=== PATIENT | male | born 1955 | race Caucasian/White ===

== ENCOUNTER 2016-09-12 10:01 | Inpatient (IN) ==
--- NOTE | 2016-09-12 10:19 | Anesthesia Evaluation PreOp ---
Date of Encounter: 09/12/16 Time of Encounter: 10:55 - Past History Planned Operation: Right fem-pop bypass w graft; right iliac angioplasty Cardiac History: HTN, Arrhythmia (Atrial fibrillation), Other (peripheral vascular disease) Pulmonary History: Smoker, COPD, Other (hx lung CA - no radiation/chemo - being followed) ROUTE SPECIALIST History: Denies Any Significant HX Other Medical History: Denies Any Significant HX Anesthesia History: No Prior Anesthetic Complications Alcohol Use: heavy, recent Drug use: none Medications and Allergies Aspirin [Ecotrin] 325 mg PO DAILY 07/29/16 [History] Atenolol [Tenormin] 50 mg PO BID 07/29/16 [History] Diltiazem HCl [Diltiazem 24Hr Cd] 180 mg PO DAILY 07/29/16 [History] HYDROcodone/Acet 5/325 mg [[place] 5-325 mg] 1 tab PO Q6H PRN #15 tab 07/29/16 [Rx ] Lisinopril [Zestril] 20 mg PO BID 07/29/16 [History] Omeprazole [PriLOSEC] 20 mg PO DAILY 07/29/16 [History] Spironolactone [Aldactone] 25 mg PO DAILY 07/29/16 [History] Albuterol Sulfate [Albuterol Inhaler] 2 puff IH Q4HR PRN 08/18/16 [History] Tiotropium [place] [Spiriva Respimat] 4 gm IH DAILY #0 08/18/16 [History] hydrOXYzine HCl [Hydroxyzine HCl] 25 mg PO Q6H PRN 08/18/16 [History] Allergies No Known Allergies Allergy (Verified 09/12/16 10:43) - Meds/Allergy Pre-op Review Medications Reviewed: Yes Allergies Reviewed: Yes Beta Blockers on Current Med List: Yes (atenolol) If Beta Blockers taken, Date/Time (Last Dose taken): 09-12-16 atenolol 8 am Anesthesia Results - Labs 09/12/16 10:27 09/12/16 10:27 Laboratory Tests 07/28/16 07/28/16 08/16/16 12:52 12:52 10:29 WBC 8.2 Hgb 11.8 L Hct 33.4 L Plt Count 317 PT 10.3 INR 1.0 APTT 28.4 Sodium 124 L Potassium 4.7 H Chloride 92 L Carbon Dioxide 22 BUN 9 Creatinine 0.96 Est GFR ( Amer) > 60 Est GFR (Non-Af Amer) > 60 BUN/Creatinine Ratio 9 Glucose 110 H Calculated Osmolality 257 L Calcium 9.4 - Imaging EKG: report reviewed, image reviewed (SR) Additional studies: TTE: Impression: Technically challenging study due to patient motion and bowel wall attenuation. There is a small sized apical defect representing artifact. Increased bowel uptake obscures interpretation of the inferior wall. Gated EF 62%. Normal wall motion. No identifiable ischemia or infarct on this study. Anesthesia Exam Last Vital Signs Temp 97.7 F 09/12/16 10:17 Pulse 74 09/12/16 10:17 Resp 18 09/12/16 10:17 BP 125/68 09/12/16 10:17 Pulse Ox 98 09/12/16 10:17 Weight: 77 kg NPO (# of Hours): >> 8 hrs - HEENT Pupil (Motor): Pupils equal, EOMI Mallampati: III Teeth: Missing, Poor dentition (only a few teeth remaining) Oral Opening: Greater than 3 - ROUTE SPECIALIST LOC: Oriented ROUTE SPECIALIST Motor: Normal RUE, Normal LUE, Normal RLE, Normal LLE, Normal Face - Cardiac Rhythm: Regular Murmur: None - Pulmonary Breath Sounds: bilateral Clear Respiratory Effort: Symmetrical Anesthesia Assess/Plan ASA Score: 3 Modified Wesley Scale for Level of Consciousness: Cooperative, oriented, and tranquil Anesthetic Plan: General Monitoring Plan: Standard Monitors, A-Line Recovery Plan: PACU
[2016-09-12] MEDS ORDERED: Lidocaine -MPF 1% 2 ML VIAL ID ONE (10:20)
[2016-09-12] MEDS ORDERED: CeFAZolin Pre 2,000 MG/100 ML 2,000 MG/100 ML BAG IVPB ONE (10:20)
[2016-09-12] MEDS ORDERED: Albuterol 2.5 MG/3 ML NEBULIZER IH ONE (10:21)
[2016-09-12] MEDS ORDERED: Albuterol 2.5 MG/3 ML NEBULIZER ONE (10:24)
[2016-09-12] MEDS ORDERED: Ringers Solution, Lactated 1,000 ML IVC SCH (10:30)
[2016-09-12 10:34] LABS: Basophils # 0.1 K/mcL (0.0-0.2); Basophils % 0.8 %; Eosinophils # 0.2 K/mcL (0.0-0.6); Eosinophils % 1.6 %; Hematocrit 35.2 % (37.5-50.1); Hemoglobin 12.1 g/dL (12.9-16.9); Immature Granulocytes % 0.7 % (0-4); Lymphocytes # 1.4 K/mcL (0.6-4.6); Lymphocytes % 14.5 %; Mean Corpuscular HGB Conc 34.4 g/dL (31.6-35.5); Mean Corpuscular Hemoglobin 29.1 pg (28.0-33.3); Mean Corpuscular Volume 84.6 fL (83.0-100.0); Mean Platelet Volume 8.7 fL (9.4-12.4); Monocytes # 0.9 K/mcL (0.0-1.3); Monocytes % 9.6 %; Neutrophils # 7.1 K/mcL (1.6-8.9); Platelet Count 276 K/mcL (140-400); Red Blood Count 4.16 M/mcL (4.19-5.50); Red Cell Distribution Width 14.6 % (11.5-14.5); Segmented Neutrophils % 72.8 %
[2016-09-12] MEDS ORDERED: Heparin 1,000 UNITS/500 mL NS 1,000 ML ONE (10:35)
[2016-09-12 10:49] LABS: BUN/Creatinine Ratio 11 (6-26); Blood Urea Nitrogen 9 mg/dL (8-26); Calcium 9.5 mg/dL (8.6-10.8); Carbon Dioxide 23 mEq/L (19-29); Chloride 92 mEq/L (98-109); Glucose 100 mg/dL (70-99); Osmolality,Calculated 255 (280-300); Sodium 123 mEq/L (136-145); eGFR For African Americans > 60 (> 60); eGFR For Non-African Americans > 60 (> 60)
--- NOTE | 2016-09-12 11:09 | History & Physical Report ---
Date of Encounter: 09/12/16 Time of Encounter: 11:08 24 Hour HP Update - Instructions Instructions: If the History and Physical is less than 30 days old and was completed prior to A.M. admission and or procedure and has NOT been updated on calendar day of procedure please complete this update prior to performing procedure. - Update Patient reports changes in Medical Condition: No Changes in examination, assessment, or condition: No Changes in Medication: No Preop tests/diagnostics Reviewed: Yes Surgery Remains Indicated: Yes Consent for Planned Operative Procedure(s) Verified: Yes - Pre-Operative Checklist Preoperative Checklist Indicated: Yes Prophylactic Antibiotic Ordered: Yes Home Medications Include Beta Olivia: Yes Beta Olivia Taken Today (Day of Surgery): Yes Beta Olivia Taken Yesterday (Day Prior to Surgery): Yes Is VTE Prophylaxis Indicated?: Yes
[2016-09-12] MEDS ORDERED: Lidocaine -MPF 2% 2 ML VIAL ONE ×2 (11:27→12:36)
[2016-09-12] MEDS ORDERED: *HR* Rocuronium Bromide 50 MG/5 ML VIAL ONE (11:27)
[2016-09-12] MEDS ORDERED: Dexamethasone 4 MG/ML VIAL ONE (11:27)
[2016-09-12] MEDS ORDERED: *HR* Midazolam HCl 2 MG/2 ML VIAL ONE (11:27)
[2016-09-12] MEDS ORDERED: *HR* Heparin 5,000 UNIT/ML VIAL ONE ×2 (11:27→15:15)
[2016-09-12] MEDS ORDERED: *HR* Remifentanil 2 MG VIAL IVP ONE (11:27)
[2016-09-12] MEDS ORDERED: *HR* Phenylephrine 10 MG/ML VIAL ONE (11:27)
[2016-09-12] MEDS ORDERED: *HR* Propofol 200 MG/20 ML VIAL IVP ONE (11:27)
[2016-09-12] MEDS ORDERED: Ondansetron 4 MG/2 ML VIAL ONE (11:27)
[2016-09-12] MEDS ORDERED: EPHEDrine 50 MG/ML VIAL ONE (11:27)
[2016-09-12] MEDS ORDERED: *HR* FentaNYL (PF) 100 MCG/2 ML VIAL ONE (11:27)
[2016-09-12] MEDS ORDERED: Dexamethasone 4 MG/ML VIAL IVP ONE (12:40)
[2016-09-12] MEDS ORDERED: *HR* Morphine 2 MG/ML SYRINGE IVP PRN ×3 (12:40→18:20)
[2016-09-12] MEDS ORDERED: Ondansetron 4 MG/2 ML VIAL IVP ONE (12:40)
[2016-09-12] MEDS ORDERED: *HR* Labetalol 20 MG/4 ML SYRINGE IVP PRN (12:40)
--- NOTE | 2016-09-12 12:40 | Anesthesia Procedures ---
Date of Encounter: 09/12/16 Time of Encounter: 11:20 Procedures: Anesthesia - Arterial Line Consent obtained: verbal consent Time out performed: Yes Sedation: Versed (mg): 2 Supplemental Oxygen via Nasal Cannula (L/min): 2 Local Anesthetic: Lidocaine 1% Amount of Anesthetic used (mls): 0.5 Size (Gauge): 20 Length (inches): 1 3/4 Technique Used: guide wire technique, direct puncture technique Post-Procedure: line taped into place, dry sterile dressing placed Patient tolerated procedure: well, no complications Complications: none Site: Radial R Vitals: Vital Signs/O2 Sat/Glucose, Most Recent Temp Pulse Resp BP Pulse Ox 97.7 F 67 18 135/85 98 09/12/16 10:17 09/12/16 11:14 09/12/16 10:41 09/12/16 11:14 09/12/16 11:14 Comments: [facility]
[2016-09-12] MEDS ORDERED: *HR* Magnesium Sulfate 1 GM/2 ML VIAL ONE (13:02)
[2016-09-12] MEDS ORDERED: *HR* Morphine 10 MG/ML VIAL ONE (15:38)
[2016-09-12 15:52] LABS: Hematocrit 24.7 % (37.5-50.1); Hemoglobin 8.5 g/dL (12.9-16.9)
[2016-09-12] MEDS ORDERED: *HR* HYDROmorphone 2 MG/ML SYRINGE ONE (15:52)
--- NOTE | 2016-09-12 17:14 | Operative Note ---
Date of procedure: 09/12/16 Pre-op diagnosis: right leg claudication/PAD Post-op diagnosis: same Procedure: right POWDER GUARD endarterectomy with bovine pericardial patch angioplasty right iliac angiogram with physiologic evaluation right femoral to [place] popliteal bypass with 6 mm PTFE Distaflo Complications: none Anesthesia: ELEANORA Surgeon: Josue Morse Estimated blood loss (cc): 700 Specimen: none Condition: stable Disposition: PACU Procedure in Detail: History Mr. Mars is a 61-year-old white male with a long history of tobacco abuse. He has been having symptoms in his lower extremities for at least 3 years. This led to noninvasive testing which showed an ankle-brachial index of approximately 0.35 bilaterally. He had no palpable pulses in the right groin and a minimal pulse in the left groin. He underwent an angiogram which demonstrated right common femoral artery occlusion for a long length and a focal occlusion of the left common femoral artery. He also has significant superficial femoral artery disease and a concern of right iliac artery disease. The patient now comes to the operating room for his first of 2 surgeries in order to revascularize the lower extremities. The right lower extremity will be revascularized first as the operation appears to be more technically difficult. Procedure After informed consent was obtained the patient was taken to the operating room. General endotracheal anesthesia was established under arterial line pressure monitoring. The abdomen groin and right lower extremity were sterilely prepped and draped. A timeout protocol was observed. The operation was initiated at the groin level. A vertical incision was made to expose the common femoral artery and its bifurcation as well as inguinal ligament and the distal external iliac artery. This vessel was a normal size vessel that was rock hard and without pulse. Controls obtained of the vessels proximally and distally. Next the greater saphenous vein was dissected in the thigh in anticipation of using this for the femoral-popliteal bypass graft portion of this procedure. The vein initially was satisfactory in size but as the dissection carried distally the vein was inadequate and so therefore the vein was abandoned. The above-knee popliteal artery was dissected controls obtained of this vessel. A subsartorial tunnel was created. The patient was then given heparin in a dose of 5000 units. An arteriotomy was made over the anterior aspect of the right common femoral artery. A very thick atherosclerotic occlusion was present with signs of calcification and degenerative material. The dissection had allowed selective control of the femoral and the external iliac artery. The arteriotomy was carried proximally and distally so that the orifice of the profunda femoris artery and superficial femoral artery could be endarterectomized. In addition there was adequate length to proceed proximally to the external iliac artery where there was a palpable pulse. A very thick material was and thus endarterectomized. The orifice of the profunda was cleaned. Excellent pulsatile flow was established from the external iliac artery. The bed of the vessel was then inspected for any residual debris. After this was accomplished and any debris removed a bovine pericardial patch was fashioned over the vessel. This was sewn into position using 6-0 Prolene suture. 2 sutures were used for this anastomosis. After this was accomplished the clamps removed and pulsatile flow was then restored into the profunda femoris system. The second portion of the operation was then conducted. 18-gauge needle was used to puncture the bovine pericardial patch area and then a short 6 [place] sheath was inserted retrograde. An angiogram was obtained of the right common iliac and external iliac system. After this a wire was advanced into the aorta. A catheter was advanced into the aorta and then a series of physiologic measurements were then made beginning at the distal aorta and carried into the right proximal mid and distal common iliac artery and into the proximal and mid external iliac artery. These findings demonstrated no significant change of the waveforms or pressure measurements either in the systolic or diastolic measurement. Also the mean pressure was essentially unchanged. With these findings it was judged that the area of stenosis seen on the angiogram was not hemodynamically significant and therefore not warrant intervention and so therefore no balloon or stent was placed in the external iliac system. The right groin sheath was left in place in anticipation of the femoral anastomosis. The third portion of the operation was then conducted. As mentioned earlier the greater saphenous vein was evaluated but was rejected for use. Therefore a 6 mm PTFE Distaflo graft was selected. This was then passed through the tunnel and the distal anastomosis created first in an end-to-side fashion. 6-0 Prolene suture was used for this anastomosis. The patient had moderate calcific disease at the [id number] popliteal artery. There was antegrade and retrograde flow. The vessels and clamped and the proximal anastomosis was fashioned. This was centered over the point where the 6 [place] sheath had been placed. The graft was then anastomosed in end to side fashion using 6-0 Prolene suture. After appropriate backbleeding and flushing the graft was opened. Pulsatile flow was then established into the right lower extremity through the graft into the popliteal system. Excellent Doppler signals were identified at the anterior tibial and posterior tibial at the ankle. The incisions were irrigated and hemostasis achieved. The wounds were then closed in layers using absorbable suture. A dry sterile dressing was applied to the skin edges. The patient was excavated in the operating room. He was neurologically intact. He was then transported to the recovery room in stable condition.
--- NOTE | 2016-09-12 17:55 | Anesthesia Evaluation Post Op ---
Date of Encounter: 09/12/16 Time of Encounter: 17:54 - Vital Signs Vital Signs: Vital Signs/O2 Sat, Most Current Temp Pulse Resp BP Pulse Ox 97.5 F L 74 12 102/76 97 09/12/16 17:45 09/12/16 17:45 09/12/16 17:45 09/12/16 17:45 09/12/16 17:45 - Lungs Lungs: Clear Ascult./Percussion - Airway Airway: Non-obstructed - Cardiovascular Regular Rate - Mental Status Mental Status: Alert & Oriented, Answers Appropriately - Pain Pain Scale: 0 Pain Scale used: Numeric (1 - 10) - Nausea Vomiting Nausea Vomiting: Not Present - Hydration Hydration: NPO, Brown catheter - Discharge PostOp Status: Transfer Patient to floor
[2016-09-12] MEDS ORDERED: Ondansetron 4 MG/2 ML VIAL IVP PRN (18:20)
[2016-09-12] MEDS ORDERED: Naloxone 0.4 MG/ML INJ IVP PRN (18:20)
[2016-09-12] MEDS ORDERED: hydrOXYzine pamoate 25 MG CAPSULE PO PRN (18:20)
[2016-09-12] MEDS ORDERED: 0.9 % Sodium Chloride 500 ML ONE (18:45)
[2016-09-12] MEDS ORDERED: 0.9 % Sodium Chloride 500 ML IVC ONE (18:47)
[2016-09-12] MEDS: Lisinopril 20 MG TABLET PO SCH (20:51)
[2016-09-13] MEDS: ceFAZolin 2,000 MG in D5% in Water 100 ML IVPB SCH ×3 (00:17→15:00)
[2016-09-13 05:05] LABS: Alanine Aminotransferase 11 Units/L (0-55); Albumin 2.5 g/dL (3.5-5.0); Alkaline Phosphatase 63 Units/L (38-126); Aspartate Amino Transferase 25 Units/L (5-34); BUN/Creatinine Ratio 16 (6-26); Bilirubin,Direct 0.2 mg/dL (0.0-0.5); Bilirubin,Indirect 0.1 mg/dL (0.0-1.2); Bilirubin,Total 0.3 mg/dL (0.2-1.2); Blood Urea Nitrogen 16 mg/dL (8-26); Calcium 8.3 mg/dL (8.6-10.8); Carbon Dioxide 21 mEq/L (19-29); Chloride 97 mEq/L (98-109); Globulin 2.4 g/dL (2.4-3.5); Glucose 194 mg/dL (70-99); Osmolality,Calculated 266 (280-300); Potassium 4.8 mEq/L (3.5-4.5); Sodium 125 mEq/L (136-145); Total Protein 4.9 g/dL (6.0-8.3); eGFR For African Americans > 60 (> 60); eGFR For Non-African Americans > 60 (> 60)
[2016-09-13 05:15] LABS: Basophils % 0.1 %; Hematocrit 25.3 % (37.5-50.1); Hemoglobin 8.7 g/dL (12.9-16.9); Immature Granulocytes % 0.7 % (0-4); Lymphocytes # 0.7 K/mcL (0.6-4.6); Lymphocytes % 4.4 %; Mean Corpuscular HGB Conc 34.4 g/dL (31.6-35.5); Mean Corpuscular Hemoglobin 29.5 pg (28.0-33.3); Mean Corpuscular Volume 85.8 fL (83.0-100.0); Mean Platelet Volume 9.9 fL (9.4-12.4); Monocytes # 0.8 K/mcL (0.0-1.3); Monocytes % 5.1 %; Platelet Count 233 K/mcL (140-400); Red Blood Count 2.95 M/mcL (4.19-5.50); Red Cell Distribution Width 14.6 % (11.5-14.5); Segmented Neutrophils % 89.7 %
[2016-09-13 05:25] LABS: Neutrophils # 13.4 K/mcL (1.6-8.9)
[2016-09-13] MEDS: Acetaminophen 325 MG TABLET PO PRN ×2 (07:55→15:00)
[2016-09-13] MEDS: Lisinopril 20 MG TABLET PO SCH (07:57)
[2016-09-13] MEDS ORDERED: (Tiotropium Bromide [Spiriva Respimat] 4 GM) IH SCH (09:00)
[2016-09-13] MEDS ORDERED: Diltiazem CD (24hr) 180 MG CAPSULE PO SCH (09:00)
[2016-09-13] MEDS ORDERED: Aspirin Enteric Coated 325 MG Tablet PO SCH (09:00)
[2016-09-13] MEDS ORDERED: Spironolactone 25 MG TABLET PO SCH (09:00)
[2016-09-13] MEDS: *HR* HYDROcodone/Acet 5/325 mg TABLET PO PRN ×2 (10:38→17:14)
--- NOTE | 2016-09-13 12:52 | Discharge Summary ---
Date of Encounter: 09/13/16 Time of Encounter: 12:50 - Discharge Diagnosis (1) PAD (peripheral artery disease) Priority: Primary Status: Acute Comments: Severe bilateral lower extremity peripheral vascular occlusive disease with ankle-brachial index of approximately 0.35. Patient had an angiogram which demonstrated marked and diffuse disease. He is status post now postoperative day #1 from right lower extremity revascularization. Patient will require endarterectomy and bypass grafting of the left lower extremity in the near future. (2) COPD (chronic obstructive pulmonary disease) Priority: Secondary Status: Chronic Comments: Patient under medical treatment Qualifiers: COPD type: unspecified COPD Qualified Code(s): J44.9 - Chronic obstructive pulmonary disease, unspecified (3) Tobacco abuse Priority: Secondary Status: Chronic Comments: Patient is a one half pack a day smoker. He had been 3 packs a day. Patient has been counseled as to the need for complete tobacco cessation. (4) ETOH abuse Priority: Secondary Status: Chronic Comments: Patient admits to consuming 4-5 cans of beer per night. (5) Hyponatremia Priority: Secondary Status: Chronic Comments: Patient has asymptomatic hyponatremia in the mid 120 range. Due to the chronicity of this and the fact that he will require further surgery and anesthesia near future I requested a renal consultation prior to his discharge today. - Discharge Medications Prescriptions: HYDROcodone/Acet 5/325 mg [[place] 5-325 mg] 1 tab PO Q6H PRN #30 tab PRN Reason: Pain Lovastatin [Mevacor] 20 mg PO HS #30 tablet Home Medications: Aspirin [Ecotrin] 325 mg PO DAILY 07/29/16 [History] Atenolol [Tenormin] 50 mg PO BID 07/29/16 [History] Diltiazem HCl [Diltiazem 24Hr Cd] 180 mg PO DAILY 07/29/16 [History] Lisinopril [Zestril] 20 mg PO BID 07/29/16 [History] Omeprazole [PriLOSEC] 20 mg PO DAILY 07/29/16 [History] Spironolactone [Aldactone] 25 mg PO DAILY 07/29/16 [History] Albuterol Sulfate [Albuterol Inhaler] 2 puff IH Q4HR PRN 08/18/16 [History] Tiotropium [place] [Spiriva Respimat] 4 gm IH DAILY #0 08/18/16 [History] hydrOXYzine HCl [Hydroxyzine HCl] 25 mg PO Q6H PRN 08/18/16 [History] HYDROcodone/Acet 5/325 mg [[place] 5-325 mg] 1 tab PO Q6H PRN #30 tab 09/13/16 [Rx ] Lovastatin [Mevacor] 20 mg PO HS #30 tablet 09/13/16 [Rx] Allergies/Adverse Reactions: Allergies No Known Allergies Allergy (Verified 09/12/16 10:43) Date of admission: 09/12/16 18:19 Primary care physician: Shankar Menezes CNP Consults: 09/13/16 08:43 Consult to Nephrology [CONS] Routine Consulting Provider: Kidney Denise/LYLE/GIGI/ISHAAN Reason for Consult: hyponatremia/EtOH use/PAD/s/p post right fem-pop bypass graft Call Completed: Yes Procedure(s) Performed: Right common femoral artery endarterectomy with bovine pericardial patch angioplasty, right iliac artery angiogram with physiologic monitoring, and right femoral to above-knee popliteal artery bypass graft with 6 mm PTFE Distaflo Discharging clinician: Josue Morse Anticipated date of discharge: 09/13/16 - Patient Status Disposition: Home, Self-Care Condition: Fair Functional capacity at discharge: uses cane/walker Overall status at discharge: patient is progressing back to baseline - Discharge Instructions Follow Up With: Suleman Kirkpatrick MD [Partnered Physician] - 10/19/16 2:00 pm Shankar Menezes CNP [Primary Care Provider] - 09/18/16 11:00 am () Josue Morse MD [Partnered Physician] - 09/25/16 9:15 am (THIS APPOINTMENT IS IN [place]) Additional Instructions: Keep right thigh surgical site dry for total of 5 days following surgery No lifting greater than 10 pounds No automobile driving Patient may ambulate inside and outside. Patient may use steps as tolerated. Patient is to use incentive spirometer 10 times an hour while awake Patient is recommended to refrain from all tobacco use. - Diet and Activity Activity: increase activity as tolerated Diet: advance to your usual diet - Hospital Course Hospital course: Mr. Mars is a 61 year old male With severe C OPD and PAD. Patient was taken to the operating room yesterday had a complex revascularization for the right lower extremity including endarterectomy bypass grafting and angiography. On postoperative evaluation the right foot was warm and pink with excellent Doppler signals. He had a dramatic improvement in the perfusion area patient's serum sodium had slightly increased to 125. Patient will be seen by nephrology later today and I anticipate he will be discharged later today as well. The patient will be given a prescription for [place] 5 mg #30 Patient will be given a prescription for lovastatin 20 mg daily at bedtime #30 with 1 refill due to his severe PAD Time spent discussing smoking cessation with patient: 3 to 10 minutes - Time Spent with Patient Total time spent providing and/or coordinating discharge services: Exam Vital Signs, Last 4 Hours Temp Pulse Resp BP Pulse Ox 09/13/16 12:00 97.7 F 69 17 115/54 99 09/13/16 11:43 97.7 F 69 17 115/54 99 General: Present: Conversant, No Apparent Distress, Well developed HEENT: Present: Atraumatic, Trachea midline Neck: Absent: JVD Cardiac: Present: Reg Rate and Rhythm, Normal S1 and S2 Lungs: Present: Decreased breath sounds Neuro: Present: Alert and responsive, No focal deficits noted Abdomen: Present: Soft, Non-tender. Absent: [place] Vascular: Present: Normal capillary refill, Other (Patient has excellent biphasic to triphasic signals at the right ankle. The right foot is warm and pink. It is markedly improved in its perfusion as compared to preoperative status.). Absent: Clubbing - VTE Documentation of Mechanical Device: Intermittent pneumatic compression device
--- NOTE | 2016-09-13 14:01 | Nephrology Consult Note ---
Date of Encounter: 09/13/16 Time of Encounter: 13:58 Assessment and Plan (1) Hyponatremia Current Visit: Yes Status: Chronic The patient has hyponatremia of unclear etiology appears to be present since at least July 2016. The patient seems asymptomatic and the low-sodium seems stable. I think he is okay for outpatient management. I have asked him to restrict his fluids to no more than 2 L daily and to liberalize his salt intake. I have also asked him to decrease his beer intake to no more to 2 beers a day. I have ordered urine serum osmolality, but are not sure if this will be done prior to his discharge. I will request repeat labs for next week to ensure that his sodium is not changing. If he does not respond to dietary modifications then may need to change some of his medications. His primary care physician needs to make sure that the patient's cancer screenings are up-to-date. He especially needs to be evaluated for lung cancer with his history of COPD. (2) CAD (coronary artery disease) Current Visit: Yes Status: Acute Per primary care team. He is not having chest pain. Qualifiers: Qualified Code(s): I25.10 - Atherosclerotic heart disease of [place] coronary artery without angina pectoris (3) PAD (peripheral artery disease) Current Visit: Yes Status: Acute Defer to the vascular team. (4) COPD (chronic obstructive pulmonary disease) Current Visit: Yes Status: Chronic He is not dyspneic at the time my evaluation. Qualifiers: COPD type: unspecified COPD Qualified Code(s): J44.9 - Chronic obstructive pulmonary disease, unspecified (5) Tobacco abuse Current Visit: Yes Status: Chronic Defer to primary care provider. (6) ETOH abuse Current Visit: Yes Status: Chronic I have asked the patient to cut his beer is down from 5 beers a day to 2 beers a day. He may need additional counseling. We will defer to his primary care team. When he comes back to the hospital we will need to monitor for delirium tremens. History of Present Illness - Reason for Consult Consult date: 09/13/16 hyponatremia - Chief Complaint Hyponatremia - History of Present Illness Mr. Mars is a 61 yo man with a history of coronary artery disease who presented for a procedure by vascular surgery. He was found to have hyponatremia that was new to the patient. The patient denies any symptoms. He reports that he rarely drinks water at home. He typically drinks 4-5 beers a night. He states his appetite is good. He does not have any other complaints. Past Med Surg Social Fam HX - Past Medical History Medical history: atrial fibrillation, cancer, COPD, hypertension, other Psychiatric history: no psych history - Past Surgical History Surgical History: no surgical history - Social History Smoking Status: Current every day smoker Smokeless Tobacco Status: No Alcohol use: heavy, recent Drug use: none Medications and Allergies Aspirin [Ecotrin] 325 mg PO DAILY 07/29/16 [History] Atenolol [Tenormin] 50 mg PO BID 07/29/16 [History] Diltiazem HCl [Diltiazem 24Hr Cd] 180 mg PO DAILY 07/29/16 [History] HYDROcodone/Acet 5/325 mg [[place] 5-325 mg] 1 tab PO Q6H PRN #15 tab 07/29/16 [Rx ] Lisinopril [Zestril] 20 mg PO BID 07/29/16 [History] Omeprazole [PriLOSEC] 20 mg PO DAILY 07/29/16 [History] Spironolactone [Aldactone] 25 mg PO DAILY 07/29/16 [History] Albuterol Sulfate [Albuterol Inhaler] 2 puff IH Q4HR PRN 08/18/16 [History] Tiotropium [place] [Spiriva Respimat] 4 gm IH DAILY #0 08/18/16 [History] hydrOXYzine HCl [Hydroxyzine HCl] 25 mg PO Q6H PRN 08/18/16 [History] Allergies No Known Allergies Allergy (Verified 09/12/16 10:43) Review of Systems All Systems: reviewed and no additional remarkable complaints except as stated ( As documented in history of present illness.) Exam - Vital Signs Vital signs: Initial Vital Signs Temp Pulse Resp BP Pulse Ox 97.7 F 74 18 125/68 98 09/12/16 10:17 09/12/16 10:17 09/12/16 10:17 09/12/16 10:09/12/16 10:17 Vital Signs - Last 8 Hours Temp Pulse Resp BP Pulse Ox 09/13/16 13:00 97.7 F 74 18 115/54 98 09/13/16 12:00 97.7 F 69 17 115/54 99 09/13/16 11:43 97.7 F 69 17 115/54 99 09/13/16 09:00 97.7 F 71 18 114/47 99 09/13/16 07:30 97.4 F L 71 18 114/47 98 Intake and Output 09/12/16 09/13/16 09/13/16 23:59 07:59 15:59 Intake Total 350 / 350 570 / 570 580 / 580 Output Total 900 / 900 380 / 380 260 / 260 Balance -550 / -550 190 / 190 320 / 320 Intake: IV Fluids 100 / 100 100 / 100 Ancef 2,000 MG In 100 / 100 100 / 100 Dextrose 5% 100 ML @ 200 mls/hr IVPB Q8HR [place] Rx#: [id number] Oral 470 / 470 480 / 480 Blood Product 350 / 350 Rbcs Leuko Poor As-1 350 / 350 Unit [id number] Output: Urine 0 / 0 260 / 260 Estimated Blood Loss 700 / 700 Catheter 200 / 200 380 / 380 Other: Meal Lunch Percent of Meal Consumed 80% Weight 77.11 kg Patient Weight 09/13/16 23:59 Weight 77.11 kg - General Appearance General appearance: well-developed, well-nourished, chronically ill EENT: ATNC Neck: supple Additional Comments: His respirations are not labored. Cardiology: edema (In the right lower extremity. His left lower extremity is in a brace.), regular rate Additional Comments: His abdomen is nondistended. Integumentary: warm and dry Neurologic: alert and oriented x3 Musculoskeletal: no cyanosis Psychiatric: mood/affect appropriate Results - Lab Results 09/13/16 04:00 09/13/16 04:00 Most recent lab results Calcium 8.3 mg/dL (8.6-10.8) L 09/13/16 04:00 Consult Discharge Plan - Plan Referrals: Shankar Menezes CNP [Primary Care Provider] - 09/18/16 11:00 am () Jouse Morse MD [Partnered Physician] - 09/25/16 9:15 am (THIS APPOINTMENT IS IN [place])
[2016-09-13 15:47] VITALS: BP 126/62
== END 2016-09-13 17:55 | disposition home or self-care (01) | DRG 253 ==
LOC: SAMDAY 10:01 → 2NNU 18:19
PROVIDERS: ADMIT Surgery Vascular Surgery; ATTEND Surgery Vascular Surgery

== ENCOUNTER 2016-09-17 21:31 | Inpatient (IN) ==
[2016-09-18] MEDS ORDERED: Naloxone 0.4 MG/ML INJ IVP PRN (00:03)
[2016-09-18] MEDS ORDERED: Ondansetron ODT 4 MG TAB.RAPDIS SL PRN (00:03)
[2016-09-18] MEDS ORDERED: Albuterol 2.5 MG/3 ML NEBULIZER IH PRN (00:03)
[2016-09-18] MEDS ORDERED: Ipratropium/Albuterol Neb 3 ML IH PRN ×2 (00:03→03:16)
--- NOTE | 2016-09-18 00:12 | Internal Med History&Physical ---
<Hermilo Bauman - Last Filed: 09/18/16 03:07> Date of Encounter: 09/18/16 Time of Encounter: 00:10 Assessment and Plan (1) Severe sepsis Current visit: Yes Status: Acute Due to pneumonia. COPD history, not oxygen dependent. 2-3 day hx of cough, phlegm production, increased work of breathing, subjective fevers. CTA negative for PE but showed right perihilar and basilar infiltrate concerning for pneumonia, mild emphysema. Meets spesis criteria due to WBC, tachypnea, pneumonia. WBC 24.9. Lactic acid 2.6. Mild hypotension at outside facility. BP currently 120s/70s. Patient was given 2L NS, vancomycin 1gram, zosyn 3.375, and tylenol 1g at [facility]. Continue vancomycin and zosyn Additional 500cc bolus to meet 30ml/kg goal for sepsis Continue to trend lactic acid Albuterol q4 PRN Duoneb q4-6h PRN Symbicort inhaler BID Prednisone 60mg q8h (2) Pneumonia Current visit: No Status: Acute See above Qualifiers: Pneumonia type: due to unspecified organism Laterality: right Lung location: lower lobe of lung Qualified Code(s): J18.1 - Lobar pneumonia, unspecified organism (3) COPD (chronic obstructive pulmonary disease) Current visit: No Status: Chronic Uses albuterol inhaler and symbicort inhaler at home. No home O2 use. No chronic prednisone use. Continue home meds. Albuterol q4 PRN Duoneb q4-6h PRN Symbicort inhaler BID Qualifiers: COPD type: unspecified COPD Qualified Code(s): J44.9 - Chronic obstructive pulmonary disease, unspecified (4) Pulmonary nodule Current visit: Yes Status: Acute 9 mm right upper lobe pulmonary nodule seen on CTA. Patient states he is aware of this nodule and has refused further workup for it in past including refusal of biopsy. Recommend f/u CT, CT/PET, or tissue sampling in 3 months. (5) Tobacco abuse Current visit: No Status: Chronic Chronic smoking history. [employer] on smoking cessation. Nicotine patch PRN (6) PAD (peripheral artery disease) Current visit: No Status: Acute Right thigh incision from fempop bypass with localized erythema and small amount of yellow drainage from site; Pulses present bilaterally - PT +1/4 left , +1/4 right. Confirmed doppler flow of bialteral DP and PT pulse. Coolness and tenderness of left foot (previous fracture) along with decreased sensation to light touch. (7) Cellulitis Current visit: Yes Status: Acute Right thigh incision from fempop bypass with localized erythema and small amount of yellow drainage from site; On vanc and zosyn empirically. Consult vascular surgery Qualifiers: Site of cellulitis: extremity Site of cellulitis of extremity: lower extremity Laterality: right Qualified Code(s): L03.115 - Cellulitis of right lower limb (8) A-fib Current visit: Yes Status: Chronic Takes diltiazem at home 180mg daily for rate control. HR currently in 80s, NSR. Will hold until BP stabilizes. Takes aspirin 325mg daily. No additional blood thinners. Qualifiers: Atrial fibrillation type: paroxysmal Qualified Code(s): I48.0 - Paroxysmal atrial fibrillation (9) CAD (coronary artery disease) Current visit: No Status: Acute Atherosclerotic calcification in the aorta and coronary circulation seen on CTA. Takes aspirin 325mg daily. Hold for now. Qualifiers: Coronary Disease-Associated Artery/Lesion type: unspecified vessel or lesion type [place] vs. transplanted heart: unspecified whether [place] or transplanted heart Associated angina: angina presence unspecified Qualified Code(s): I25.10 - Atherosclerotic heart disease of [place] coronary artery without angina pectoris (10) Hyponatremia Current visit: No Status: Chronic History of chronic hyponatremia. Continue to monitor. Has received NS due sepsis. Will consult nephro. See above. (11) Anemia Current visit: No Status: Acute Chronic for patient. Received 1 PRBC transfusion s/p right fempop due to anemia Qualifiers: Anemia type: unspecified type Qualified Code(s): D64.9 - Anemia, unspecified (12) GERD (gastroesophageal reflux disease) Current visit: Yes Status: Acute Takes omeprazole 20mg daily at home. Continue home meds Qualifiers: Esophagitis presence: without esophagitis Qualified Code(s): K21.9 - Gastro -esophageal reflux disease without esophagitis (13) Hypertension Current visit: Yes Status: Acute Takes lisinopril 20mg BID and atenolol 50mg BID. Will hold for now until BP stable. Qualifiers: Hypertension type: essential hypertension Qualified Code(s): I10 - Essential (primary) hypertension Internal Medicine - H&P: HPI Admitted From: Intrahospital Transfer (from [facility]) Plans for Post Hospital Care: Home History of present illness: Patient is a 61 yo M with PMHx of COPD, a fib, HTN, CAD, PAD, GERD. Patient underwent recent fempop bypass by Dr. Morse. He presented to [facility] today due to productive cough, increased work of breathing above baseline, subjective fevers for the past 2-3 days. Admits to chronic smoking history. Denies ever being on BIPAP or intubated in the past due to COPD. Does not use oxygen at home; uses albuterol PRN and Spiriva inhaler at home. He does have a known pulmonary nodule which he states he has refused to have biopsied in the past. He also admits to mild drainage of yellow fluid/pus from fempop incision site. He reports chronic coolness and decreased sensation to light touch of left foot due to peripheral artery disease. He denies any chest pain, nausea, vomiting, diarrhea, constipation, abdominal pain. Workup at outside facility showed elevated WBC, lactic [place], CT showing right sided pneumonia in perhilar and basilar region. He was given 2L NS, vancomycin, zosyn, and Tylenol 1g. No steroids or breathing treatments given at outside facilty. Past Med Surg Social Fam HX - Past Medical History Medical history: atrial fibrillation, cancer, COPD, hypertension, other Psychiatric history: no psych history - Past Surgical History Surgical History: no surgical history - Social History Smoking Status: Current every day smoker Smokeless Tobacco Status: No (1ppd) Alcohol use: heavy, recent Drug use: none - Family History Mother Living Status: Hx Family Medical Disorders: Yes (lung ca) Internal Medicine - H&P: Meds Aspirin [Ecotrin] 325 mg PO DAILY 07/29/16 [History] Atenolol [Tenormin] 50 mg PO BID 07/29/16 [History] Diltiazem HCl [Diltiazem 24Hr Cd] 180 mg PO DAILY 07/29/16 [History] Lisinopril [Zestril] 20 mg PO BID 07/29/16 [History] Omeprazole [PriLOSEC] 20 mg PO DAILY 07/29/16 [History] Spironolactone [Aldactone] 25 mg PO DAILY 07/29/16 [History] Albuterol Sulfate [Albuterol Inhaler] 2 puff IH Q4HR PRN 08/18/16 [History] Tiotropium [place] [Spiriva Respimat] 4 gm IH DAILY #0 08/18/16 [History] hydrOXYzine HCl [Hydroxyzine HCl] 25 mg PO Q6H PRN 08/18/16 [History] HYDROcodone/Acet 5/325 mg [[place] 5-325 mg] 1 tab PO Q6H PRN #30 tab 09/13/16 [Rx ] Lovastatin [Mevacor] 20 mg PO HS #30 tablet 09/13/16 [Rx] Allergies No Known Allergies Allergy (Verified 09/12/16 10:43) All Systems PM: A 10-system review of systems was performed and is negative for pertinent findings except as documented above in the HPI. - Constitutional Constitutional: fatigue, fever(s), no chills - EENT Eyes: no change in vision Nose, mouth and throat: no nasal congestion, no sinus pain, no sore throat - Cardiovascular Cardiovascular ROS IM: dyspnea, no chest pain, no lightheadedness - Respiratory Respiratory: cough, dyspnea, excessive phlegm production - Gastrointestinal Gastrointestinal: no abdominal pain, no cramping, no diarrhea, no nausea, no vomiting - Genitourinary Genitourinary ROS male: no dysuria, no hematuria - Musculoskeletal Musculoskeletal ROS IM: no muscle weakness, no numbness, no tingling - Integumentary Integumentary IM: other (pus drainage and redness right thigh incision) - Neurological Neurological ROS: no dizziness, no numbness, no tingling, no weakness - Psychiatric Psychiatric: no confusion - Constitutional General appearance: Present: mild distress, A&O X 3, answers questions appropriately Exam: Increased work of breathing on exam with accessory muscle use, actively coughing up phlegm - Head Head exam: Present: atraumatic, normal inspection - Eye Eye exam: Present: PERRL, conjuntiva pink, sclera anicteric Pupils: Present: PERRL - ENT ENT exam: Present: mucous membranes moist - Neck Neck exam general surgery: Present: supple, trachea midline. Absent: lymphadenopathy - Respiratory Respiratory exam: Present: accessory muscle use (mild to moderate), decreased breath sounds (bilateral U and L lobes, worse on right), respiratory distress ( mild), wheezes (bilateral LL), tachypnea - Cardiovascular Cardiovascular exam: Present: RRR, +S1, +S2. Absent: diastolic murmur, gallop, rubs, systolic murmur - GI/Abdominal GI/Abdominal exam: Present: normal bowel sounds, soft, no peritoneal signs. Absent: distended, tenderness - Extremities Exam Extremities exam: Present: full ROM, normal capillary refill, warm Additional comments: Right thigh incision from fempop bypass with localized erythema and small amount of yellow drainage from site; Pulses present bilaterally - PT +1/4 left , +1/4 right. Confirmed doppler flow of bialteral DP and PT pulse. Cool and tenderness of left foot (previous fracture) with decreased sensation to light touch - Neurological Exam Neurological exam: Present: alert, CN II-XII intact, oriented X3, no focal deficits. Absent: facial droop, speech deficit - Psychiatric Psychiatric exam: Present: anxious, normal affect, normal mood - Skin Skin exam: Present: diaphoretic Additional comments: mildly jaundice Internal Med - H&P Results - Labs CBC & Chem 7: 09/18/16 00:48 09/18/16 00:48 <Camacho Pedroza - Last Filed: 09/18/16 06:13> Date of Encounter: 09/18/16 Internal Medicine - H&P: HPI History of present illness: Mr. Mars is a 61 year old male All Systems PM: A 10-system review of systems was performed and is negative for pertinent findings except as documented above in the HPI. - Constitutional Vitals: Temp Pulse Resp BP Pulse Ox 98.3 F 92 24 109/67 100 09/18/16 03:37 09/18/16 05:00 09/18/16 05:00 09/18/16 05:00 09/18/16 05:00 Internal Med - H&P Results - Labs CBC & Chem 7: 09/18/16 04:17 09/18/16 04:17 Labs: Short CBC 09/18/16 09/18/16 Range/Units 00:48 04:17 WBC 17.9 H 15.2 H (4.3-11.1) K/mcL Hgb 6.4 L 6.6 L (12.9-16.9) g/dL Hct 19.2 L 19.8 L (37.5-50.1) % Plt Count 242 288 (140-400) K/mcL Neutrophils # 15.0 H 12.5 H (1.6-8.9) K/mcL BMP 09/18/16 09/18/16 00:48 04:17 Sodium 125 L 126 L Potassium 4.0 D 4.1 Chloride 98 99 Carbon Dioxide 20 19 BUN 16 14 Creatinine 0.84 0.77 Glucose 139 H 144 H Calcium 7.8 L D 8.1 L - ABG Interpretation ABG results: 09/18/16 03:50 ABG pH 7.35 ABG pCO2 39 ABG pO2 37 L* ABG HCO3 21.5 ABG Total CO2 22.7 ABG O2 Saturation 67 L ABG Base Excess -3.8 L - Impressions ITS Impressions Chest X-Ray 09/18/16 03:36 IMPRESSION: Interval development of mild interstitial edema, possibly related to fluid overload. Mild right basilar airspace disease is unchanged from the recent study. D/ / Viraj Ramos MD / Viraj Ramos MD Interpreting Provider: Viraj Ramos MD - Attending Attestation I examined this patient and my medical decision-making was reviewed with the Resident Physician, Dr Hermilo Bauman. I agree with the documented findings, disposition and treatment plan as described except to the extent set forth below. My findings are summarized below: Patient appears tremulous and tachypneic, and mild to moderate respiratory distress. Lung auscultation reveals bilateral expiratory wheezes. Heart is tachycardic and regular Laboratory data reveals white blood cell count of 24,000 at [facility], lactic acid at [facility] was 2.6. CT of the chest reviewed by myself shows a right upper lobe nodule and right middle lobe right lower lobe groundglass opacity consistent with pneumonia. Plan: We will admit the patient to ICU overflow and started treatment with IV fluids, IV antibiotics and inhaled bronchodilators. The patient then became tachypneic with respirations 35-40/m, in severe respiratory distress and tripoding,. We placed the patient on BiPAP and obtain a repeat ABG which showed severe arterial hypoxemia, pH was within normal range and CO2 was normal. We continued the BiPAP. His oxygen saturation was 99-100% on 50% FiO2 with 10 over 5 cm H2O. I ordered albuterol inhaled in between DuoNeb treatments and started IV Solu-Medrol for COPD exacerbation. He also appeared to be withdrawing from alcohol. Per additional history obtained from the patient's daughter last drink was yesterday at 3 PM but the patient drinks daily 3-6 beers. I ordered 2 mg of Ativan which improved with tremulousness and tachypnea, breathing ride dropped to 20-24 and oxygen saturation remained at 99% on BiPAP. I repeated a chest x-ray and reviewed this to show again a perihilar and right lower lobe hazy infiltrate but no pulmonary edema, no pleural effusions no pneumothorax. We will continue with inhaled bronchodilators IV steroids BiPAP as needed, alcohol withdrawal protocol and antibiotics with Zosyn and vancomycin. Follow- up blood cultures. Continue with IV fluids. CODE STATUS is full code discuss with the patient and family at the bedside. The high probability of emergent and significant clinical decompensation with potential impairment of organ function including cardiovascular system required my full attention and presence at the bedside. I spent 40 minutes of critical care time which involved decision making of high complexity to assess, manipulate, and support vital organ system, in order to prevent further life threatening deterioration of the patient's condition. The critical care time was spent in the patient's room and/or its close proximity and involved obtaining updated history and examining the patient, reviewing EKGs, imaging studies and laboratory data, ordering medications and laboratory studies, and reevaluating for clinical response. The time took to perform any procedures was not included in the critical care time quoted above and is billed separately.
[2016-09-18] MEDS ORDERED: 0.9 % Sodium Chloride 500 ML IVC ONE (00:23)
[2016-09-18 01:04] LABS: INR 1.2; Prothrombin Time 13.3 Seconds (9.4-12.1)
[2016-09-18 01:07] LABS: Activated Partial Thrombo Time 25.6 Seconds (26.0-36.0)
[2016-09-18 01:14] LABS: BUN/Creatinine Ratio 19 (6-26); Blood Urea Nitrogen 16 mg/dL (8-26); Calcium 7.8 mg/dL (8.6-10.8); Carbon Dioxide 20 mEq/L (19-29); Chloride 98 mEq/L (98-109); Glucose 139 mg/dL (70-99); Magnesium 1.4 mg/dL (1.6-2.6); Osmolality,Calculated 263 (280-300); eGFR For African Americans > 60 (> 60); eGFR For Non-African Americans > 60 (> 60)
[2016-09-18 01:17] LABS: Hematocrit 19.2 % (37.5-50.1); Hemoglobin 6.4 g/dL (12.9-16.9); Mean Corpuscular HGB Conc 33.3 g/dL (31.6-35.5); Mean Corpuscular Hemoglobin 29.5 pg (28.0-33.3); Mean Corpuscular Volume 88.5 fL (83.0-100.0); Mean Platelet Volume 9.3 fL (9.4-12.4); Platelet Count 242 K/mcL (140-400); Red Blood Count 2.17 M/mcL (4.19-5.50); Red Cell Distribution Width 14.6 % (11.5-14.5)
[2016-09-18 03:05] LABS: Sodium 125 mEq/L (136-145)
[2016-09-18 03:12] LABS: Anisocytosis 1+ (Not Present); Eosinophils # 0.2 K/mcL (0.0-0.6); Hypochromasia Present (Not Present); Lymphocytes # 0.7 K/mcL (0.6-4.6); Monocytes # 1.6 K/mcL (0.0-1.3); Platelet Estimate Normal (Normal); Polychromasia 1+ (Not Present); Toxic Granulation Present (Not Present)
[2016-09-18] MEDS ORDERED: Magnesium Sulfate 1 GM in D5% in Water 100 ML IVPB ONE (03:15)
[2016-09-18] MEDS: Piperacillin/Tazobactam 3.375 GM in D5% in Water (Mini-Bag+) 100 ML IVPB SCH ×3 (03:25→20:48)
[2016-09-18] MEDS: Albuterol 2.5 MG/3 ML NEBULIZER IH PRN ×2 (03:28→20:07)
[2016-09-18] MEDS ORDERED: *HR* LORazepam 2 MG/ML VIAL IVP ONE ×2 (03:34→03:38)
[2016-09-18] MEDS ORDERED: methylPREDNISolone 125 MG/2 ML VIAL IVP ONE (03:44)
[2016-09-18] MEDS ORDERED: methylPREDNISolone 125 MG/2 ML VIAL IVP SCH ×3 (03:45→10:00)
[2016-09-18 03:52] LABS: ABG Base Excess -3.8 mEq/L (-2.0 to 3.0); ABG HCO3 21.5 mEQ/L (21-27); ABG Oxygen Saturation 67 % (95-98); ABG PCO2 39 mmHg (35-45); ABG PH 7.35 pH Units (7.32-7.45); ABG TCO2 22.7 mEq/L (20-26)
[2016-09-18 03:53] LABS: Blood Gas FiO2 50 %
[2016-09-18 03:54] LABS: ABG PO2 37 mmHg (85-104)
[2016-09-18] MEDS ORDERED: predniSONE 20 MG TABLET PO SCH ×2 (04:00→06:00)
[2016-09-18] MEDS ORDERED: *HR* LORazepam 2 MG/ML VIAL IVP PRN ×3 (04:25→10:55)
[2016-09-18] MEDS ORDERED: Thiamine (B-1) 100 MG, Folic Acid 1 MG, MVI, adult with vitamin K 10 ML in 0.9 % Sodi... IVPB ONE (04:28)
--- NOTE | 2016-09-18 04:31 | Event Note ---
Addendum entered and electronically signed by Hermilo Bauman DO 09/18/16 05:04: Patient Hgb 6.4. Will transfuse with 2 PRBCs. Original Note: <Hermilo Bauman - Last Filed: 09/18/16 04:32> Date of Encounter: 09/18/16 Time of Encounter: 04:29 Patient had episode of desaturation and increased WOB. Desat to high 70s/low 80s. RR in 30s. Patient also has hx of alcohol abuse and was shivering. Daughter at bedside stated that patient has chronic alcohol abuse, used to drink 5-6 beers a day and has decreased to 3-4 beers daily over the past few days. Last drink was 09/16/16. He was placed on BIPAP and given solumedrol 125mg, 1mg ativan, placed on CIWA protocol. Repeat CXR shows pneumonia with mild edema. After medications, RR has slowed to 20s, sat is 100% on BIPAP, resting comfortably. <Camacho Pedroza - Last Filed: 09/18/16 06:15> Date of Encounter: 09/18/16 I examined this patient and my medical decision-making was reviewed with the Resident Physician, Dr Hermilo Bauman. I agree with the documented findings, disposition and treatment plan as described.
[2016-09-18 04:40] LABS: BUN/Creatinine Ratio 18 (6-26); Blood Urea Nitrogen 14 mg/dL (8-26); Calcium 8.1 mg/dL (8.6-10.8); Carbon Dioxide 19 mEq/L (19-29); Chloride 99 mEq/L (98-109); Glucose 144 mg/dL (70-99); Osmolality,Calculated 265 (280-300); Potassium 4.1 mEq/L (3.5-4.5); Sodium 126 mEq/L (136-145); eGFR For African Americans > 60 (> 60); eGFR For Non-African Americans > 60 (> 60)
[2016-09-18] MEDS: Budesonide/Formoterol 80/4.5 MDI IH SCH ×3 (04:53→21:37)
[2016-09-18 05:11] LABS: Hematocrit 19.8 % (37.5-50.1); Mean Corpuscular HGB Conc 33.3 g/dL (31.6-35.5); Mean Corpuscular Hemoglobin 29.3 pg (28.0-33.3); Mean Platelet Volume 9.3 fL (9.4-12.4); Platelet Count 288 K/mcL (140-400); Red Blood Count 2.25 M/mcL (4.19-5.50); Red Cell Distribution Width 14.7 % (11.5-14.5)
[2016-09-18 05:17] LABS: Hemoglobin 6.6 g/dL (12.9-16.9)
[2016-09-18 05:42] LABS: Platelet Estimate Normal (Normal)
[2016-09-18 05:44] LABS: Lymphocytes # 0.9 K/mcL (0.6-4.6); Monocytes # 1.8 K/mcL (0.0-1.3); Neutrophils # 12.5 K/mcL (1.6-8.9); Toxic Granulation Present (Not Present)
[2016-09-18] MEDS ORDERED: 0.9 % Sodium Chloride 250 ML ONE (06:21)
[2016-09-18 06:37] LABS: ABG Base Excess -2.8 mEq/L (-2.0 to 3.0); ABG HCO3 21.4 mEQ/L (21-27); ABG Oxygen Saturation 93 % (95-98); ABG PCO2 33 mmHg (35-45); ABG PH 7.42 pH Units (7.32-7.45); ABG PO2 66 mmHg (85-104); ABG TCO2 22.4 mEq/L (20-26)
[2016-09-18 06:38] LABS: Blood Gas FiO2 36 %
[2016-09-18] MEDS ORDERED: Furosemide 20 MG/2 ML VIAL IVP ONE (07:53)
--- NOTE | 2016-09-18 08:48 | Pulmonology Consult Note ---
<Juan Pablo Torres - Last Filed: 09/18/16 14:30> Date of Encounter: 09/18/16 Time of Encounter: 08:41 Assessment and Plan (1) Pneumonia Current Visit: No Status: Acute On CT from outside facility at [facility] was concerning for right lower lobe pneumonia. Patient is currently on vancomycin and Zosyn. Qualifiers: Pneumonia type: due to unspecified organism Laterality: right Lung location: lower lobe of lung Qualified Code(s): J18.1 - Lobar pneumonia, unspecified organism (2) COPD (chronic obstructive pulmonary disease) Current Visit: No Status: Chronic Patient has a history of COPD. Does not require home oxygen use. We will treat this with albuterol, DuoNeb and Symbicort. Then discontinue the patient steroids at this time. Qualifiers: COPD type: unspecified COPD Qualified Code(s): J44.9 - Chronic obstructive pulmonary disease, unspecified (3) PAD (peripheral artery disease) Current Visit: No Status: Acute Patient has a history of peripheral artery disease. He had a femoropopliteal bypass approximately one week ago. Surgical wounds appear to be healing with small amount of yellow discharge. Vascular surgery has been consult on this patient. (4) Pulmonary nodule Current Visit: Yes Status: Acute Patient has a known pulmonary nodule CT scan showed a measuring 9 mm. My understanding from sign out from the overnight physician that the patient does not wish to have this biopsied. This be followed up on an outpatient basis (5) ETOH abuse Current Visit: No Status: Chronic Patient has a history of chronic alcohol use. He drinks anywhere from 2-5 beers a night. Patient been placed on CIWA protocol. (6) Anemia Current Visit: No Status: Acute Patient had femoropopliteal surgery 1 week ago requiring one unit of packed red blood cells. Patient is also received 2 units of blood here in the ICU. We have also done a CT scan of the abdomen and pelvis and right lower extremity to look for a bleed which were both negative. Qualifiers: Anemia type: unspecified type Qualified Code(s): D64.9 - Anemia, unspecified (7) Hyponatremia Current Visit: No Status: Chronic Current family and medical records patient has a chronic history of hyponatremia. We will continue to monitor this. Nephrology has also been consult. (8) Cellulitis Current Visit: Yes Status: Acute Patient appeared to have small amount of yellowish drainage and erythema around his surgical site of his femoropopliteal. There is also Patient is currently being treated with vancomycin and Zosyn at this time. Qualifiers: Site of cellulitis: extremity Site of cellulitis of extremity: lower extremity Laterality: right Qualified Code(s): L03.115 - Cellulitis of right lower limb (9) A-fib Current Visit: Yes Status: Chronic Patient has a history of paroxysmal atrial fibrillation. Patient is normally on diltiazem orally at home. We have started the patient on IV diltiazem due to him being unable to take medication orally. Qualifiers: Atrial fibrillation type: paroxysmal Qualified Code(s): I48.0 - Paroxysmal atrial fibrillation (10) Hypertension Current Visit: Yes Status: Acute Patient has history of hypertension. Currently his blood pressure is 108/55. We will continue to hold his home blood pressure medications. Qualifiers: Hypertension type: essential hypertension Qualified Code(s): I10 - Essential (primary) hypertension (11) Tobacco abuse Current Visit: No Status: Chronic Current smoking history. We will encourage smoking cessation once the patient is awake and alert. (12) DVT prophylaxis Current Visit: Yes Status: Acute Patient is not currently on any blood thinners at this time due to his hemoglobin dropping and the concern for a bleed. SCDs had been ordered for DVT prophylaxis History of Present Illness Consult date: 09/18/16 Requesting physician: Hermilo aBuman Reason for consult: COPD, pneumonia Chief complaint: Shortness of Breath History of present illness: Patient is a 61-year-old male that presented to the emergency department for increasing shortness of breath. Patient also reported having a fever for the last 2-3 days. He had a recent femoropopliteal surgery approximately one week ago. Patient has a history of daily alcohol consumption. CT that was obtained at [facility] showed bibasilar infiltrate concerning for pneumonia. There is also a 9 mm right upper lobe pulmonary nodule. The patient was aware of this nodule but has not had any follow-up or biopsies of it. Patient is currently unresponsive and the history was obtained from the medical record and from the family that is in the room. Past Med Surg Social Fam HX - Past Medical History Medical history: atrial fibrillation, cancer, COPD, hypertension, other Psychiatric history: no psych history - Past Surgical History Surgical History: no surgical history - Social History Smoking Status: Current every day smoker Packs per day: 1/2 Smokeless Tobacco Status: No (1ppd) Alcohol use: heavy, recent Drug use: none - Family History Mother Living Status: Hx Family Medical Disorders: Yes (lung ca) Medications and Allergies Aspirin [Ecotrin] 325 mg PO DAILY 07/29/16 [History] Atenolol [Tenormin] 50 mg PO BID 07/29/16 [History] Diltiazem HCl [Diltiazem 24Hr Cd] 180 mg PO DAILY 07/29/16 [History] Lisinopril [Zestril] 20 mg PO BID 07/29/16 [History] Omeprazole [PriLOSEC] 20 mg PO DAILY 07/29/16 [History] Spironolactone [Aldactone] 25 mg PO DAILY 07/29/16 [History] Albuterol Sulfate [Albuterol Inhaler] 2 puff IH Q4HR PRN 08/18/16 [History] Tiotropium [place] [Spiriva Respimat] 4 gm IH DAILY #0 08/18/16 [History] hydrOXYzine HCl [Hydroxyzine HCl] 25 mg PO Q6H PRN 08/18/16 [History] HYDROcodone/Acet 5/325 mg [[place] 5-325 mg] 1 tab PO Q6H PRN #30 tab 09/13/16 [Rx ] Lovastatin [Mevacor] 20 mg PO HS #30 tablet 09/13/16 [Rx] Allergies No Known Allergies Allergy (Verified 09/12/16 10:43) ROS unobtainable: due to mental status All Systems: A 10-system review of systems was performed and is negative for pertinent findings except as documented above in the HPI. Physical Examination Vital Signs: Vital Signs, Last 4 Hours Temp Pulse Resp BP Pulse Ox 09/18/16 07:51 83 22 108/55 94 09/18/16 07:28 98.6 F 09/18/16 07:05 98.6 F 82 22 94 09/18/16 06:50 99.0 F 85 20 108/63 97 09/18/16 06:00 88 22 130/80 95 09/18/16 05:00 92 24 109/67 100 General appearance: other (Patient is unresponsive) Eyes: nonicteric ENT: oropharynx moist Neck: no lymphadenopathy, no JVD Effort: normal Auscultation: left: clear, right: rales Cardiovascular: irregular rhythm Gastrointestinal: normoactive bowel sounds Integumentary: other Extremities: no cyanosis, cool (Left foot is cooler than the right. Has some mild bluish discoloration on the bottom of third toe), edema (In the right lower extremity) Musculoskeletal: no deformities unable to assess due to mental status other (Unable to assess due the patient's mental status) Results - Laboratory Findings CBC and BMP: 09/18/16 04:17 09/18/16 04:17 ABG ABG pH 7.42 pH Units (7.32-7.45) 09/18/16 06:25 ABG pCO2 33 mmHg (35-45) L 09/18/16 06:25 ABG pO2 66 mmHg (85-104) L 09/18/16 06:25 ABG O2 Saturation 93 % (95-98) L 09/18/16 06:25 PT/INR, D-dimer PT 13.3 Seconds (9.4-12.1) H 09/18/16 00:48 Abnormal lab findings: Abnormal lab results WBC 15.2 K/mcL (4.3-11.1) H 09/18/16 04:17 RBC 2.25 M/mcL (4.19-5.50) L 09/18/16 04:17 Hgb 6.6 g/dL (12.9-16.9) L 09/18/16 04:17 Hct 19.8 % (37.5-50.1) L 09/18/16 04:17 RDW 14.7 % (11.5-14.5) H 09/18/16 04:17 MPV 9.3 fL (9.4-12.4) L 09/18/16 04:17 Band Neutrophils % 10.0 % (0-4) H 09/18/16 04:17 Metamyelocytes % 1.0 % (0) H 09/18/16 00:48 Myelocytes % 1.0 % (0) H 09/18/16 00:48 Neutrophils # 12.5 K/mcL (1.6-8.9) H 09/18/16 04:17 Monocytes # 1.8 K/mcL (0.0-1.3) H 09/18/16 04:17 Toxic Granulation Present (Not Present) A 09/18/16 04:17 Polychromasia 1+ (Not Present) A 09/18/16 00:48 Hypochromasia Present (Not Present) A 09/18/16 00:48 Anisocytosis 1+ (Not Present) A 09/18/16 00:48 PT 13.3 Seconds (9.4-12.1) H 09/18/16 00:48 APTT 25.6 Seconds (26.0-36.0) L 09/18/16 00:48 ABG pCO2 33 mmHg (35-45) L 09/18/16 06:25 ABG pO2 66 mmHg (85-104) L 09/18/16 06:25 ABG O2 Saturation 93 % (95-98) L 09/18/16 06:25 ABG Base Excess -2.8 mEq/L (-2.0 to 3.0) L 09/18/16 06:25 Sodium 126 mEq/L (136-145) L 09/18/16 04:17 Glucose 144 mg/dL (70-99) H 09/18/16 04:17 POC Glucose 197 (58-89) H 09/18/16 07:13 Calculated Osmolality 265 (280-300) L 09/18/16 04:17 Calcium 8.1 mg/dL (8.6-10.8) L 09/18/16 04:17 Magnesium 1.4 mg/dL (1.6-2.6) L 09/18/16 00:48 - Clinical Findings Intake & Output: Intake & Output 09/17/16 09/18/16 09/18/16 23:59 07:59 15:59 Intake Total 252 / 252 Output Total 500 / 500 Balance -248 / -248 Weight 79.3 kg Consult Discharge Plan - Plan Referrals: Shankar Menezes, RECREATION ENGINEER [Primary Care Provider] - <Danika Perera - Last Filed: 09/18/16 17:01> Date of Encounter: 09/18/16 All Systems: A 10-system review of systems was performed and is negative for pertinent findings except as documented above in the HPI. Physical Examination Vital Signs: Vital Signs, Last 4 Hours Temp Pulse Resp BP Pulse Ox 09/18/16 13:00 80 26 121/67 100 09/18/16 12:31 97.1 F L 09/18/16 12:00 76 24 123/62 100 09/18/16 11:06 98.7 F 87 26 112/57 100 09/18/16 11:00 88 26 112/57 100 09/18/16 10:51 98.0 F 88 18 116/61 100 Results - Laboratory Findings CBC and BMP: 09/18/16 15:04 09/18/16 15:04 ABG ABG pH 7.43 pH Units (7.32-7.45) 09/18/16 13:40 ABG pCO2 35 mmHg (35-45) 09/18/16 13:40 ABG pO2 30 mmHg (85-104) L* 09/18/16 13:40 ABG O2 Saturation 60 % (95-98) L 09/18/16 13:40 PT/INR, D-dimer PT 13.3 Seconds (9.4-12.1) H 09/18/16 00:48 Abnormal lab findings: Abnormal lab results WBC 15.2 K/mcL (4.3-11.1) H 09/18/16 04:17 RBC 2.25 M/mcL (4.19-5.50) L 09/18/16 04:17 Hgb 6.6 g/dL (12.9-16.9) L 09/18/16 04:17 Hct 19.8 % (37.5-50.1) L 09/18/16 04:17 RDW 14.7 % (11.5-14.5) H 09/18/16 04:17 MPV 9.3 fL (9.4-12.4) L 09/18/16 04:17 Band Neutrophils % 10.0 % (0-4) H 09/18/16 04:17 Metamyelocytes % 1.0 % (0) H 09/18/16 00:48 Myelocytes % 1.0 % (0) H 09/18/16 00:48 Neutrophils # 12.5 K/mcL (1.6-8.9) H 09/18/16 04:17 Monocytes # 1.8 K/mcL (0.0-1.3) H 09/18/16 04:17 Toxic Granulation Present (Not Present) A 09/18/16 04:17 Polychromasia 1+ (Not Present) A 09/18/16 00:48 Hypochromasia Present (Not Present) A 09/18/16 00:48 Anisocytosis 1+ (Not Present) A 09/18/16 00:48 PT 13.3 Seconds (9.4-12.1) H 09/18/16 00:48 APTT 25.6 Seconds (26.0-36.0) L 09/18/16 00:48 ABG pO2 30 mmHg (85-104) L* 09/18/16 13:40 ABG O2 Saturation 60 % (95-98) L 09/18/16 13:40 Sodium 126 mEq/L (136-145) L 09/18/16 04:17 Glucose 144 mg/dL (70-99) H 09/18/16 04:17 POC Glucose 239 (58-89) H 09/18/16 11:47 Calculated Osmolality 265 (280-300) L 09/18/16 04:17 Calcium 8.1 mg/dL (8.6-10.8) L 09/18/16 04:17 Magnesium 1.4 mg/dL (1.6-2.6) L 09/18/16 00:48 - Clinical Findings Intake & Output: Intake & Output 09/17/16 09/18/16 09/18/16 23:59 07:59 15:59 Intake Total 252 / 252 911.2 / 911.2 Output Total 500 / 500 2300 / 2300 Balance -248 / -248 -1388.8 / -1388.8 Weight 79.3 kg - Attending Attestation I examined this patient and my medical decision-making was reviewed with the Resident Physician. I agree with the documented findings, disposition and treatment plan as described except to the extent set forth below. Patient seen and examined. Labs, radiology, chart personally reviewed. 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 Patient will be on CIWA protocol due to history of alcohol abuse. Pulmonary: Acceptable oxygenation and ventilation. Patient has a lung nodule which needs to be worked up as outpatient. Cardiovascular: stable GI: Nutrition per dietary and GI prophylaxis per routine Heme: DVT prophylaxis per routine. Patient has lost blood in surgery, however will need to do CT images to make sure there is no retroperitoneal bleed. Patient has received blood transfusion. ID: Continue antibiotics and plan to de-escalation Renal; urine out put and renal funtion reviewed Endorcine: blood glucose is monitored Lines: all lines checked and no evidence of infections Skin: skin care to prevent pressure ulcers per nursing routine care Overall the patient stable at this time and will monitor closely in the ICU due to his mental status and also his underlying pulmonary disease with acute blood loss anemia.
[2016-09-18] MEDS: Vancomycin 1,250 MG in D5% in Water 250 ML IVPB SCH ×2 (09:32→20:48)
[2016-09-18] MEDS ORDERED: Magnesium Sulfate 2 GM in D5% in Water 100 ML IVPB PRN (10:57)
[2016-09-18] MEDS ORDERED: Calcium Gluconate 1,000 MG in D5% in Water 100 ML IVPB PRN (10:57)
[2016-09-18] MEDS ORDERED: Potassium Phosphate 44 MEQ in 0.9 % Sodium Chloride 250 ML IVPB PRN (10:57)
[2016-09-18] MEDS ORDERED: Vancomycin 1,250 MG in D5% in Water 250 ML IVPB SCH (12:00)
[2016-09-18] MEDS: Pantoprazole 40 MG VIAL IVP SCH (12:06)
[2016-09-18 13:47] LABS: ABG Base Excess -0.9 mEq/L (-2.0 to 3.0); ABG HCO3 23.2 mEQ/L (21-27); ABG Oxygen Saturation 60 % (95-98); ABG PCO2 35 mmHg (35-45); ABG PH 7.43 pH Units (7.32-7.45); ABG TCO2 24.3 mEq/L (20-26)
[2016-09-18 13:49] LABS: ABG PO2 30 mmHg (85-104); Blood Gas FiO2 32 %
[2016-09-18] MEDS: Ipratropium/Albuterol Neb 3 ML IH SCH ×2 (14:23→21:37)
[2016-09-18 15:15] LABS: Basophils % 0.1 %; Hematocrit 27.3 % (37.5-50.1); Hemoglobin 9.2 g/dL (12.9-16.9); Immature Granulocytes % 3.1 % (0-4); Lymphocytes # 0.5 K/mcL (0.6-4.6); Lymphocytes % 3.5 %; Mean Corpuscular HGB Conc 33.7 g/dL (31.6-35.5); Mean Corpuscular Hemoglobin 28.7 pg (28.0-33.3); Monocytes # 0.4 K/mcL (0.0-1.3); Monocytes % 2.7 %; Neutrophils # 13.6 K/mcL (1.6-8.9); Platelet Count 267 K/mcL (140-400); Red Blood Count 3.21 M/mcL (4.19-5.50); Red Cell Distribution Width 14.4 % (11.5-14.5); Segmented Neutrophils % 90.6 %
[2016-09-18 15:27] LABS: BUN/Creatinine Ratio 16 (6-26); Blood Urea Nitrogen 13 mg/dL (8-26); Calcium 8.6 mg/dL (8.6-10.8); Carbon Dioxide 22 mEq/L (19-29); Chloride 96 mEq/L (98-109); Glucose 232 mg/dL (70-99); Osmolality,Calculated 270 (280-300); Potassium 3.8 mEq/L (3.5-4.5); Sodium 126 mEq/L (136-145); eGFR For African Americans > 60 (> 60); eGFR For Non-African Americans > 60 (> 60)
--- NOTE | 2016-09-18 15:43 | Nephrology Consult Note ---
Date of Encounter: 09/18/16 Time of Encounter: 12:00 Assessment and Plan (1) Hyponatremia Current Visit: No Status: Chronic Chronic hyponatremia in the setting of beer consumption with lung nodule and smoking history apperaing euvolemic rule out beer potomania vs SIADH. Will check TSH and cortisol levels Will check uric acid level Will check serum and urine osmolality (2) Pneumonia Current Visit: No Status: Acute Qualifiers: Pneumonia type: due to unspecified organism Laterality: right Lung location: lower lobe of lung Qualified Code(s): J18.1 - Lobar pneumonia, unspecified organism (3) ETOH abuse Current Visit: No Status: Chronic History of Present Illness - Reason for Consult Consult date: 09/18/16 Acute Kidney Injury, hyponatremia Requesting physician: Hermilo Bauman - History of Present Illness 61 y o male with PMH of HTN, CAD, PAD, COPD with active tobacco use, Afib and chronic hyponatremia presenting for persistent SOB with productive cough after a recent fempop bypass by Dr Morse. He is being treated for pneumonia currently. Renal consulted for his history of hyponatremia for which workup was initiated last admission by Dr Kirkpatrick. Per family, he has been aware of hyponatremia since last year. He also has a history of daily beer consumption up to 6 cans of 12oz beer a day but has tried to decrease recently with withdrawal symptoms noted. He also has a history of lung nodule per imaging. He denies any N/V/D and no diuretics. Sodium levels have been between 123 to 126 in recent labs. Past Med Surg Social Fam HX - Past Medical History Medical history: atrial fibrillation, cancer, COPD, hypertension, other Psychiatric history: no psych history - Past Surgical History Surgical History: no surgical history - Social History Smoking Status: Current every day smoker Packs per day: 1/2 Smokeless Tobacco Status: No (1ppd) Alcohol use: heavy, recent Drug use: none - Family History Mother Living Status: Hx Family Medical Disorders: Yes (lung ca) Medications and Allergies Aspirin [Ecotrin] 325 mg PO DAILY 07/29/16 [History] Atenolol [Tenormin] 50 mg PO BID 07/29/16 [History] Diltiazem HCl [Diltiazem 24Hr Cd] 180 mg PO DAILY 07/29/16 [History] Lisinopril [Zestril] 20 mg PO BID 07/29/16 [History] Omeprazole [PriLOSEC] 20 mg PO DAILY 07/29/16 [History] Spironolactone [Aldactone] 25 mg PO DAILY 07/29/16 [History] Albuterol Sulfate [Albuterol Inhaler] 2 puff IH Q4HR PRN 08/18/16 [History] Tiotropium [place] [Spiriva Respimat] 4 gm IH DAILY #0 08/18/16 [History] hydrOXYzine HCl [Hydroxyzine HCl] 25 mg PO Q6H PRN 08/18/16 [History] HYDROcodone/Acet 5/325 mg [[place] 5-325 mg] 1 tab PO Q6H PRN #30 tab 09/13/16 [Rx ] Lovastatin [Mevacor] 20 mg PO HS #30 tablet 09/13/16 [Rx] Allergies No Known Allergies Allergy (Verified 09/12/16 10:43) Review of Systems All Systems: reviewed and no additional remarkable complaints except as stated ( as noted in HPI) Exam - Vital Signs Vital signs: Initial Vital Signs Pulse Ox 96 09/18/16 00:12 Vital Signs - Last 8 Hours Temp Pulse Resp BP Pulse Ox 09/18/16 14:23 24 98 09/18/16 14:00 91 28 132/82 99 09/18/16 13:35 97.8 F 80 28 132/82 99 09/18/16 13:00 80 26 121/67 100 09/18/16 12:31 97.1 F L 09/18/16 12:00 76 24 123/62 100 09/18/16 11:06 98.7 F 87 26 112/57 100 09/18/16 11:00 88 26 112/57 100 09/18/16 10:51 98.0 F 88 18 116/61 100 09/18/16 10:00 87 28 123/96 100 09/18/16 09:50 22 99 09/18/16 09:30 98.5 F 82 24 114/64 99 09/18/16 09:00 85 24 117/66 99 09/18/16 08:00 81 22 117/59 99 09/18/16 07:51 83 22 108/55 94 Intake and Output 09/17/16 09/18/16 09/18/16 23:59 07:59 15:59 Intake Total 252 / 252 1161.2 / 1161.2 Output Total 500 / 500 2300 / 2300 Balance -248 / -248 -1138.8 / -1138.8 Intake: IV Fluids 102 / 102 761.2 / 761.2 Magnesium Sulfate 1 GM In 102 / 102 Dextrose 5% 100 ML @ 100 mls/hr IVPB ONCE ONE Rx# :[id number] Vitamin B-1 100 MG 511.2 / 511.2 Folvite 1 MG M.v.i. Adult 10 ml In 0.9 % Sodium Chloride 500 ML @ 85.2 mls/hr IVPB ONCE ONE Rx#: [id number] Vancocin 1,250 MG In 250 / 250 Dextrose 5% 250 ML @ 166. 667 mls/hr IVPB Q12H [facility] Rx#:[id number] Oral 0 / 0 Blood Product 150 / 150 400 / 400 Rbcs Leuko Poor As-3 2nd 150 / 150 150 / 150 Unit [id number] Rbcs Leuko Poor As-3 Ph 250 / 250 Unit [id number] Output: Urine 500 / 500 1000 / 1000 Urethral (Brown) 1000 / 1000 Catheter 1300 / 1300 Other: Weight 79.3 kg Blood Glucose* 197 239 Patient Weight 09/18/16 23:59 Weight 79.3 kg - General Appearance General appearance: well-developed, well-nourished (NAD, resting but arousable) EENT: ATNC, mucous membranes moist Neck: no JVD, supple Respiratory: course breath sounds Cardiology: no edema, normal S1, normal S2 Gastrointestinal: no tenderness, no guarding Integumentary: no rash, warm and dry Neurologic: no focal deficit Musculoskeletal: no deformities Results - Lab Results 09/19/16 06:13 09/19/16 10:27 Most recent lab results ABG pH 7.43 pH Units (7.32-7.45) 09/18/16 13:40 ABG pCO2 35 mmHg (35-45) 09/18/16 13:40 ABG pO2 30 mmHg (85-104) L* 09/18/16 13:40 ABG HCO3 23.2 mEQ/L (21-27) 09/18/16 13:40 ABG O2 Saturation 60 % (95-98) L 09/18/16 13:40 Calcium 8.6 mg/dL (8.6-10.8) 09/18/16 15:04 Phosphorus 3.0 mg/dL (2.3-4.7) 09/18/16 00:48 Magnesium 1.4 mg/dL (1.6-2.6) L 09/18/16 00:48 Consult Discharge Plan - Plan Referrals: Shankar Menezes, CECILIA [Primary Care Provider] -
[2016-09-18 15:49] LABS: Platelet Estimate Normal (Normal)
[2016-09-18 17:03] LABS: Thyroid Stimulating Hormone 2.692 mcIU/mL (0.350-4.840)
[2016-09-19] MEDS: Ipratropium/Albuterol Neb 3 ML IH SCH ×4 (03:36→21:38)
[2016-09-19] MEDS: Piperacillin/Tazobactam 3.375 GM in D5% in Water (Mini-Bag+) 100 ML IVPB SCH ×3 (04:00→20:15)
[2016-09-19] MEDS ORDERED: *HR* Enoxaparin 40 MG/0.4 ML SYRINGE SQ SCH (06:00)
[2016-09-19 06:36] LABS: Basophils % 0.1 %; Hematocrit 24.8 % (37.5-50.1); Hemoglobin 8.6 g/dL (12.9-16.9); Immature Granulocytes % 1.9 % (0-4); Immature Platelets 3.7 % (1.1-6.1); Lymphocytes # 0.6 K/mcL (0.6-4.6); Lymphocytes % 3.8 %; Mean Corpuscular HGB Conc 34.7 g/dL (31.6-35.5); Mean Corpuscular Hemoglobin 29.3 pg (28.0-33.3); Mean Corpuscular Volume 84.4 fL (83.0-100.0); Mean Platelet Volume 9.4 fL (9.4-12.4); Monocytes # 1.1 K/mcL (0.0-1.3); Monocytes % 7.8 %; Neutrophils # 12.6 K/mcL (1.6-8.9); Platelet Count 329 K/mcL (140-400); Red Blood Count 2.94 M/mcL (4.19-5.50); Red Cell Distribution Width 14.7 % (11.5-14.5); Segmented Neutrophils % 86.4 %
[2016-09-19 06:39] LABS: INR 1.1; Ionized Calcium 1.13 mmol/L (1.15-1.35); Prothrombin Time 11.4 Seconds (9.4-12.1)
[2016-09-19 06:41] LABS: Activated Partial Thrombo Time 22.8 Seconds (26.0-36.0)
[2016-09-19 06:49] LABS: BUN/Creatinine Ratio 17 (6-26); Blood Urea Nitrogen 12 mg/dL (8-26); Calcium 8.7 mg/dL (8.6-10.8); Carbon Dioxide 22 mEq/L (19-29); Chloride 95 mEq/L (98-109); Glucose 213 mg/dL (70-99); Magnesium 1.5 mg/dL (1.6-2.6); Osmolality,Calculated 266 (280-300); Phosphorous 3.1 mg/dL (2.3-4.7); Potassium 3.5 mEq/L (3.5-4.5); Sodium 125 mEq/L (136-145); eGFR For African Americans > 60 (> 60); eGFR For Non-African Americans > 60 (> 60)
--- NOTE | 2016-09-19 06:53 | Vascular/[facility] Progress Note ---
Date of Encounter: 09/19/16 Time of Encounter: 08:05 - Assessment and plan (1) PAD (peripheral artery disease) Current Visit: No Status: Chronic The patient is status post a right femoral to popliteal artery bypass. His foot is warm, his pedal signals are polyphasic and his incisions are intact. He has serous drainage from his right medial thigh wound. There is no purulence or fluctuance. He has some ecchymosis and induration at the site. At this time, he is on antibiotics. Recommended daily dressing changes. Will evaluate again tomorrow. (2) Anemia Current Visit: No Status: Acute The patient has acute expected postoperative blood loss anemia. He is hemodynamically stable. Qualifiers: Anemia type: other cause Other causes of anemia: acute posthemorrhagic Qualified Code(s): D62 - Acute posthemorrhagic anemia - Subjective Interval history: The patient underwent a right femoral to popliteal artery bypass last week. He was admitted overnight. Vascular surgery has been called to evaluate his wound. The patient is currently resting comfortably. Vital Signs, Last 4 Hours Temp Pulse Resp BP Pulse Ox 09/19/16 06:00 92 19 132/72 100 09/19/16 04:00 98.4 F 112 18 115/66 100 09/19/16 03:38 18 100 - Physical Examination General: Present: No Apparent Distress Cardiac: Present: Reg Rate and Rhythm Lungs: Present: Normal Breath Sounds Neuro: Present: No focal deficits noted Vascular: Present: Normal capillary refill, Pulse, diminished (Left pedal signals biphasic), Pulse, normal (right pedal signals poplyphasic), Edema ( trace right lower extremity edema), Surgical incisions (incisions are clean, dry and intact, minimal induration and ecchymosis present at the right thigh, no fluctuance, no purulence noted. Serous drainage noted on the bandage). Absent: Cyanosis Abdomen: Present: Soft Results 09/19/16 06:13 09/19/16 06:13 Consult Discharge Plan - Plan Referrals: Shankar Menezes CNP [Primary Care Provider] -
[2016-09-19] MEDS ORDERED: Dextrose Gel 15 GM PO PRN ×2 (08:17)
[2016-09-19] MEDS ORDERED: *HR* Dextrose 50 % in Water (Syg) 50 ML SYRINGE IVP PRN (08:17)
[2016-09-19] MEDS ORDERED: D5% in Water 1,000 ML IVC PRN (08:17)
--- NOTE | 2016-09-19 08:24 | Pulmonology Progress Note ---
<Juan Pablo Torres - Last Filed: 09/19/16 12:08> Date of Encounter: 09/19/16 Time of Encounter: 08:22 Assessment and Plan (1) Pneumonia Current Visit: No Status: Acute CT from an outside facility at [facility] was concerning for right lower lobe pneumonia. Patient is currently on vancomycin and Zosyn. Qualifiers: Pneumonia type: due to unspecified organism Laterality: right Lung location: lower lobe of lung Qualified Code(s): J18.1 - Lobar pneumonia, unspecified organism (2) COPD (chronic obstructive pulmonary disease) Current Visit: No Status: Chronic Patient has a known history of COPD. He does not require home oxygen use. We have been treating him with albuterol, DuoNeb and symbicort. Qualifiers: COPD type: unspecified COPD Qualified Code(s): J44.9 - Chronic obstructive pulmonary disease, unspecified (3) PAD (peripheral artery disease) Current Visit: No Status: Chronic Patient has a history of peripheral artery disease. He had Femoropopliteal bypass approximately 1 week ago. Surgical wounds appear to be healing with small amount of yellow discharge. Asked her surgery has been consult on this patient. (4) Pulmonary nodule Current Visit: Yes Status: Acute Patient has a known pulmonary nodule shown on CT. This nodule measured approximately 9 mm. It is my understanding that the patient has not had this biopsied. According to the family he does have a pension adviser that is aware of this and he will follow up with them as an outpatient. (5) ETOH abuse Current Visit: No Status: Chronic Patient has a history of chronic alcohol use. He drinks anywhere from 2-5 beers a night. Does not drink any liquor/hard alcohol. Patient has been placed on the CIWA protocol. (6) Anemia Current Visit: No Status: Acute Patient had a femoropopliteal surgery approximately one week ago requiring one unit of packed red blood cells. Patient has also received 2 units of blood in the ICU yesterday. We have done a CT of the abdomen and pelvis and right lower extremity to look for a bleed which are both negative. Hemoglobin has responded to the 2 units of blood. We will continue to monitor the patient's hemoglobin at this time. Qualifiers: Anemia type: other cause Other causes of anemia: acute posthemorrhagic Qualified Code(s): D62 - Acute posthemorrhagic anemia (7) Hyponatremia Current Visit: No Status: Chronic Current the family and the medical records patient has a history of chronic hyponatremia. We will continue to monitor this. Nephrology has been consult on this patient. (8) Cellulitis Current Visit: Yes Status: Acute Patient has small amount of yellowish drainage and mild erythema around the surgical site of his femoropopliteal. The patient is currently on vancomycin and Zosyn at this time Qualifiers: Site of cellulitis: extremity Site of cellulitis of extremity: lower extremity Laterality: right Qualified Code(s): L03.115 - Cellulitis of right lower limb (9) A-fib Current Visit: Yes Status: Chronic Patient has a history of paroxysmal atrial fibrillation. Patient was on a diltiazem drip due to being unable to take oral medications. This morning we had discontinued the diltiazem drip and started him back on his home diltiazem and restarted his atenolol. Qualifiers: Atrial fibrillation type: paroxysmal Qualified Code(s): I48.0 - Paroxysmal atrial fibrillation (10) Hypertension Current Visit: Yes Status: Acute Patient has a history of hypertension. Current blood pressure of 111/68. We will continue to hold the patient's home blood pressure medications due to his blood pressure being stable. Qualifiers: Hypertension type: essential hypertension Qualified Code(s): I10 - Essential (primary) hypertension (11) Tobacco abuse Current Visit: No Status: Chronic Patient has a history of smoking. We will encourage smoking cessation. (12) DVT prophylaxis Current Visit: Yes Status: Acute Patient has not been placed on any blood thinners at this time due to his low hemoglobin. SCDs have been ordered for DVT prophylaxis. Subjective Principal diagnosis: Shortness of breath Interval history: Patient states that he did well overnight. States that he is feeling well this morning. He says that his breathing has significantly improved and is much better from when he came in. Patient is sitting in bed eating breakfast and talking. Overall the patient states that he is doing well. Objective PUL Vital signs: Last Vital Signs Temp 97.9 F 09/19/16 07:39 Pulse 84 09/19/16 07:42 Resp 18 09/19/16 07:39 BP 111/68 09/19/16 07:39 Pulse Ox 100 09/19/16 07:39 General appearance: no acute distress Eyes: nonicteric ENT: oropharynx moist Neck: supple, no lymphadenopathy, no JVD Effort: normal Auscultation: bilateral: wheezes Cardiovascular: irregular rhythm (The normal rate) Gastrointestinal: normoactive bowel sounds, soft, non-tender Integumentary: other (Patient has surgical incisions in the right groin and right thigh) Extremities: no cyanosis, edema (Edema of the right lower extremity), other ( Middle toe on left foot has a darkish blue color on the bottom of it) Musculoskeletal: no deformities normal mental status, non-focal exam mood appropriate, affect normal Results - Laboratory Findings CBC and BMP: 09/19/16 06:13 09/19/16 10:27 ABG ABG pH 7.43 pH Units (7.32-7.45) 09/18/16 13:40 ABG pCO2 35 mmHg (35-45) 09/18/16 13:40 ABG pO2 30 mmHg (85-104) L* 09/18/16 13:40 ABG O2 Saturation 60 % (95-98) L 09/18/16 13:40 PT/INR, D-dimer PT 11.4 Seconds (9.4-12.1) 09/19/16 06:13 Abnormal lab findings: Abnormal lab results WBC 14.6 K/mcL (4.3-11.1) H 09/19/16 06:13 RBC 2.94 M/mcL (4.19-5.50) L 09/19/16 06:13 Hgb 8.6 g/dL (12.9-16.9) L 09/19/16 06:13 Hct 24.8 % (37.5-50.1) L 09/19/16 06:13 RDW 14.7 % (11.5-14.5) H 09/19/16 06:13 Band Neutrophils % 10.0 % (0-4) H 09/18/16 04:17 Metamyelocytes % 1.0 % (0) H 09/18/16 00:48 Myelocytes % 1.0 % (0) H 09/18/16 00:48 Neutrophils # 12.6 K/mcL (1.6-8.9) H 09/19/16 06:13 Toxic Granulation Present (Not Present) A 09/18/16 04:17 Polychromasia 1+ (Not Present) A 09/18/16 00:48 Hypochromasia Present (Not Present) A 09/18/16 00:48 Anisocytosis 1+ (Not Present) A 09/18/16 00:48 APTT 22.8 Seconds (26.0-36.0) L 09/19/16 06:13 ABG pO2 30 mmHg (85-104) L* 09/18/16 13:40 ABG O2 Saturation 60 % (95-98) L 09/18/16 13:40 Sodium 125 mEq/L (136-145) L 09/19/16 06:13 Chloride 95 mEq/L (98-109) L 09/19/16 06:13 Creatinine 0.70 mg/dL (0.72-1.25) L 09/19/16 06:13 Glucose 213 mg/dL (70-99) H 09/19/16 06:13 POC Glucose 266 (58-89) H 09/19/16 07:35 Serum Osmolality 277 mOsm/kg (280-300) L 09/18/16 16:13 Calculated Osmolality 266 (280-300) L 09/19/16 06:13 Uric Acid 2.4 mg/dL (3.5-7.2) L 09/18/16 16:13 Ionized Calcium 1.13 mmol/L (1.15-1.35) L 09/19/16 06:13 Magnesium 1.5 mg/dL (1.6-2.6) L 09/19/16 06:13 - Clinical Findings Intake & Output: Intake & Output 09/18/16 09/19/16 09/19/16 23:59 07:59 15:59 Intake Total 350 / 350 180 / 180 Output Total 825 / 825 600 / 600 Balance -475 / -475 -420 / -420 Weight 79.515 kg Consult Discharge Plan - Plan Referrals: Shankar Menezes, CLIENT ACCOUNT SPECIALIST [Primary Care Provider] - <Danika Perera - Last Filed: 09/19/16 15:37> Date of Encounter: 09/19/16 Objective PUL Vital signs: Last Vital Signs Temp 97.8 F 09/19/16 11:00 Pulse 92 09/19/16 13:00 Resp 18 09/19/16 13:00 BP 135/68 09/19/16 13:00 Pulse Ox 100 09/19/16 13:00 Results - Laboratory Findings CBC and BMP: 09/19/16 06:13 09/19/16 10:27 ABG ABG pH 7.43 pH Units (7.32-7.45) 09/18/16 13:40 ABG pCO2 35 mmHg (35-45) 09/18/16 13:40 ABG pO2 30 mmHg (85-104) L* 09/18/16 13:40 ABG O2 Saturation 60 % (95-98) L 09/18/16 13:40 PT/INR, D-dimer PT 11.4 Seconds (9.4-12.1) 09/19/16 06:13 Abnormal lab findings: Abnormal lab results WBC 14.6 K/mcL (4.3-11.1) H 09/19/16 06:13 RBC 2.94 M/mcL (4.19-5.50) L 09/19/16 06:13 Hgb 8.6 g/dL (12.9-16.9) L 09/19/16 06:13 Hct 24.8 % (37.5-50.1) L 09/19/16 06:13 RDW 14.7 % (11.5-14.5) H 09/19/16 06:13 Band Neutrophils % 10.0 % (0-4) H 09/18/16 04:17 Metamyelocytes % 1.0 % (0) H 09/18/16 00:48 Myelocytes % 1.0 % (0) H 09/18/16 00:48 Neutrophils # 12.6 K/mcL (1.6-8.9) H 09/19/16 06:13 Toxic Granulation Present (Not Present) A 09/18/16 04:17 Polychromasia 1+ (Not Present) A 09/18/16 00:48 Hypochromasia Present (Not Present) A 09/18/16 00:48 Anisocytosis 1+ (Not Present) A 09/18/16 00:48 APTT 22.8 Seconds (26.0-36.0) L 09/19/16 06:13 ABG pO2 30 mmHg (85-104) L* 09/18/16 13:40 ABG O2 Saturation 60 % (95-98) L 09/18/16 13:40 Sodium 123 mEq/L (136-145) L 09/19/16 10:27 Chloride 93 mEq/L (98-109) L 09/19/16 10:27 Glucose 206 mg/dL (70-99) H 09/19/16 10:27 POC Glucose 177 (58-89) H 09/19/16 11:30 Serum Osmolality 277 mOsm/kg (280-300) L 09/18/16 16:13 Calculated Osmolality 262 (280-300) L 09/19/16 10:27 Uric Acid 2.4 mg/dL (3.5-7.2) L 09/18/16 16:13 Ionized Calcium 1.13 mmol/L (1.15-1.35) L 09/19/16 06:13 Magnesium 1.5 mg/dL (1.6-2.6) L 09/19/16 06:13 - Clinical Findings Intake & Output: Intake & Output 09/18/16 09/19/16 09/19/16 23:59 07:59 15:59 Intake Total 350 / 350 180 / 180 210 / 210 Output Total 825 / 825 600 / 600 100 / 100 Balance -475 / -475 -420 / -420 110 / 110 Weight 79.515 kg - Attending Attestation I examined this patient and my medical decision-making was reviewed with the Resident Physician. I agree with the documented findings, disposition and treatment plan as described except to the extent set forth below. Patient seen and examined. Labs, radiology, chart personally reviewed. Agree with resident's history and physical, assessment, plan with following comments: [employer]REE [employer]ADER: Patient follows commands, Pulmonary: Acceptable oxygenation and ventilation. I don't feel patient has COPD exacerbation and steroid was stopped. I have explained to patient about the pulmonary nodule since he has risk factors, but the family at the bedside stated he follows up with his pension adviser at [facility], Dr. Gutierrez and he will follow with his pulmonolgist. Cardiovascular: Transition to oral medication. GI: Nutrition per dietary and GI prophylaxis per routine Heme: DVT prophylaxis per routine ID: Continue antibiotics and plan to de-escalation Renal; urine out put and renal funtion reviewed. DC Brown catheter Endorcine: blood glucose is monitored Lines: all lines checked and no evidence of infections Skin: skin care to prevent pressure ulcers per nursing routine care Overall patient stable enough to be transferred to the floor.
[2016-09-19] MEDS: Diltiazem CD (24hr) 180 MG CAPSULE PO SCH (08:51)
[2016-09-19] MEDS: Pantoprazole 40 MG VIAL IVP SCH (08:51)
[2016-09-19] MEDS: Vancomycin 1,250 MG in D5% in Water 250 ML IVPB SCH ×2 (09:10→21:23)
[2016-09-19 10:50] LABS: BUN/Creatinine Ratio 16 (6-26); Blood Urea Nitrogen 13 mg/dL (8-26); Calcium 8.7 mg/dL (8.6-10.8); Carbon Dioxide 23 mEq/L (19-29); Chloride 93 mEq/L (98-109); Glucose 206 mg/dL (70-99); Osmolality,Calculated 262 (280-300); Potassium 3.9 mEq/L (3.5-4.5); Sodium 123 mEq/L (136-145); eGFR For African Americans > 60 (> 60); eGFR For Non-African Americans > 60 (> 60)
[2016-09-19] MEDS: Budesonide/Formoterol 80/4.5 MDI IH SCH ×2 (11:29→21:38)
[2016-09-19] MEDS ORDERED: Insulin LISPRO 300 UNITS/3 ML VIAL SQ SCH (12:00)
[2016-09-19] MEDS: Sennosides 8.6 MG TABLET PO SCH (12:25)
[2016-09-19] MEDS: Insulin LISPRO 300 UNITS/3 ML VIAL SQ SCH ×3 (12:56→21:24)
--- NOTE | 2016-09-19 13:12 | Nephrology Progress Note ---
Date of Encounter: 09/19/16 Time of Encounter: 10:00 Subjective Principal diagnosis: Shortness of breath Objective - Vital Signs Vital signs: Vital Signs Temp Pulse Resp BP Pulse Ox 09/19/16 11:33 18 100 09/19/16 11:00 97.8 F 09/19/16 10:00 83 18 127/63 100 09/19/16 07:42 84 09/19/16 07:39 97.9 F 84 18 111/68 100 09/19/16 07:00 97.9 F 09/19/16 06:00 92 19 132/72 100 09/19/16 04:00 98.4 F 112 18 115/66 100 09/19/16 03:38 18 100 09/19/16 02:00 90 17 110/59 100 09/19/16 00:00 78 16 117/56 100 09/18/16 23:59 98.5 F 09/18/16 22:00 89 22 111/65 100 09/18/16 21:39 20 100 09/18/16 20:50 98.4 F 09/18/16 20:07 18 98 09/18/16 20:00 86 34 134/76 100 09/18/16 18:07 76 20 115/67 99 09/18/16 17:23 89 24 117/59 100 09/18/16 16:00 87 22 114/56 100 09/18/16 15:43 97.6 F 09/18/16 15:00 96 24 114/70 97 09/18/16 14:23 24 98 09/18/16 14:00 91 28 132/82 99 09/18/16 13:35 97.8 F 80 28 132/82 99 Intake and Output 09/18/16 09/19/16 09/19/16 23:59 07:59 15:59 Intake Total 350 / 350 180 / 180 210 / 210 Output Total 825 / 825 600 / 600 100 / 100 Balance -475 / -475 -420 / -420 110 / 110 Intake: IV Fluids 350 / 350 180 / 180 210 / 210 Cardizem 125 MG In 80 / 80 110 / 110 Dextrose 5% 100 ML @ 5 MG /HR 5 mls/hr IVC .Q24H [facility] Rx#:[id number] Zosyn 3.375 GM In 100 / 100 100 / 100 100 / 100 Dextrose 5% (Minibag+) 100 ML 100 ML @ 25 mls/hr IVPB Q8H [facility] Rx#: [id number] Vancocin 1,250 MG In 250 / 250 Dextrose 5% 250 ML @ 166. 667 mls/hr IVPB Q12H [facility] Rx#:[id number] Output: Catheter 825 / 825 600 / 600 100 / 100 Other: Weight 79.515 kg Blood Glucose* 224 266 177 - Lab 09/19/16 06:13 09/19/16 10:27 Most recent lab results ABG pH 7.43 pH Units (7.32-7.45) 09/18/16 13:40 ABG pCO2 35 mmHg (35-45) 09/18/16 13:40 ABG pO2 30 mmHg (85-104) L* 09/18/16 13:40 ABG HCO3 23.2 mEQ/L (21-27) 09/18/16 13:40 ABG O2 Saturation 60 % (95-98) L 09/18/16 13:40 Calcium 8.7 mg/dL (8.6-10.8) 09/19/16 10:27 Phosphorus 3.1 mg/dL (2.3-4.7) 09/19/16 06:13 Magnesium 1.5 mg/dL (1.6-2.6) L 09/19/16 06:13 Consult Discharge Plan - Plan Referrals: Shankar Menezes, WEIGHT LOSS PHYSICIAN [Primary Care Provider] -
[2016-09-19] MEDS: Thiamine (B-1) 100 MG, Folic Acid 1 MG, MVI, adult with vitamin K 10 ML in 0.9 % Sodi... IVPB SCH (17:09)
[2016-09-20] MEDS: Piperacillin/Tazobactam 3.375 GM in D5% in Water (Mini-Bag+) 100 ML IVPB SCH ×2 (03:55→13:23)
[2016-09-20] MEDS: Vancomycin 1,250 MG in D5% in Water 250 ML IVPB SCH ×2 (03:56→13:24)
[2016-09-20] MEDS: Ipratropium/Albuterol Neb 3 ML IH SCH ×4 (04:02→22:42)
[2016-09-20] MEDS: Acetaminophen 325 MG TABLET PO PRN ×2 (04:51→13:50)
[2016-09-20 06:57] LABS: Basophils % 0.2 %; Eosinophils % 0.1 %; Hematocrit 24.9 % (37.5-50.1); Hemoglobin 8.4 g/dL (12.9-16.9); Immature Granulocytes % 1.5 % (0-4); Lymphocytes # 1.5 K/mcL (0.6-4.6); Lymphocytes % 8.8 %; Mean Corpuscular HGB Conc 33.7 g/dL (31.6-35.5); Mean Corpuscular Hemoglobin 29.2 pg (28.0-33.3); Mean Corpuscular Volume 86.5 fL (83.0-100.0); Mean Platelet Volume 9.1 fL (9.4-12.4); Monocytes # 1.5 K/mcL (0.0-1.3); Monocytes % 8.7 %; Neutrophils # 14.1 K/mcL (1.6-8.9); Platelet Count 338 K/mcL (140-400); Red Blood Count 2.88 M/mcL (4.19-5.50); Red Cell Distribution Width 14.6 % (11.5-14.5); Segmented Neutrophils % 80.7 %
[2016-09-20] MEDS: Diltiazem CD (24hr) 180 MG CAPSULE PO SCH (08:58)
[2016-09-20] MEDS: Pantoprazole 40 MG VIAL IVP SCH (08:58)
[2016-09-20] MEDS: Sennosides 8.6 MG TABLET PO SCH (08:59)
[2016-09-20] MEDS: Insulin LISPRO 300 UNITS/3 ML VIAL SQ SCH ×4 (08:59→20:53)
[2016-09-20 09:09] LABS: BUN/Creatinine Ratio 18 (6-26); Blood Urea Nitrogen 13 mg/dL (8-26); Calcium 8.5 mg/dL (8.6-10.8); Carbon Dioxide 24 mEq/L (19-29); Chloride 97 mEq/L (98-109); Glucose 122 mg/dL (70-99); Osmolality,Calculated 265 (280-300); Potassium 3.8 mEq/L (3.5-4.5); Sodium 127 mEq/L (136-145); eGFR For African Americans > 60 (> 60); eGFR For Non-African Americans > 60 (> 60)
[2016-09-20] MEDS: Budesonide/Formoterol 80/4.5 MDI IH SCH ×2 (09:21→22:42)
--- NOTE | 2016-09-20 09:50 | Internal Med Progress Note ---
<AmanLee zavala - Last Filed: 09/20/16 10:43> Date of Encounter: 09/20/16 Time of Encounter: 10:43 - Assessment and plan (1) Pneumonia Current Visit: No Status: Acute Assessment and plan: Right lower lobe infiltrate noted on CT exam. GERD with broad-spectrum antibiotics at this time given the patient's recent surgery as well as chronic alcohol use which places the patient at risk for aspiration. He appears to be improving clinically. Likely transition to by mouth antibiotics tomorrow and preparation for discharge. Qualifiers: Pneumonia type: due to unspecified organism Laterality: right Lung location: lower lobe of lung Qualified Code(s): J18.1 - Lobar pneumonia, unspecified organism (2) COPD (chronic obstructive pulmonary disease) Current Visit: No Status: Chronic Assessment and plan: Does not appear to be in acute exacerbation. Continue Symbicort, DuoNeb's. Qualifiers: COPD type: unspecified COPD Qualified Code(s): J44.9 - Chronic obstructive pulmonary disease, unspecified (3) PAD (peripheral artery disease) Current Visit: No Status: Chronic (4) Anemia Current Visit: No Status: Acute Assessment and plan: Acute blood loss in the setting of recent femoropopliteal bypass. Patient received 2 units of packed red blood cells upon arrival. Hemoglobin recovered nicely and has dropped somewhat but this may be due to dilution in the setting of fluid hydration due to sepsis. Does not appear to be actively bleeding at this time. Recheck CBC tomorrow morning. Qualifiers: Anemia type: other cause Other causes of anemia: acute posthemorrhagic Qualified Code(s): D62 - Acute posthemorrhagic anemia (5) ETOH abuse Current Visit: No Status: Chronic Assessment and plan: Patient drinks minimum 3-6 beers daily. No evidence of withdrawals. On the CIWA protocol. His chronic alcohol use increases his risk for aspiration which could have resulted in pneumonia as discussed above. (6) Hyponatremia Current Visit: No Status: Chronic Assessment and plan: Likely related to poor nutritional status in the setting of alcoholism. Sodium stable, nephrology is following. (7) Pulmonary nodule Current Visit: Yes Status: Acute Assessment and plan: Pulmonology discussed this with the patient and the patient will follow up with his camp director at [facility]. (8) A-fib Current Visit: Yes Status: Chronic Assessment and plan: Patient has a history of paroxysmal atrial fibrillation. In sinus rhythm at this time. Currently rate controlled with diltiazem and atenolol. [id number] score of 2. Patient should be on anticoagulation for stroke prevention however the patient recently had a femoropopliteal bypass and was anemic on presentation likely related to his recent surgery. We will hold off on systemic anticoagulation this time recommend that he follow-up with his PCP regarding long-term anticoagulation. Qualifiers: Atrial fibrillation type: paroxysmal Qualified Code(s): I48.0 - Paroxysmal atrial fibrillation (9) Hypertension Current Visit: Yes Status: Acute Assessment and plan: Blood pressure under good control. Continue home medications. Qualifiers: Hypertension type: essential hypertension Qualified Code(s): I10 - Essential (primary) hypertension - Subjective Interval history: Patient seen and examined at bedside. Patient states that he feels pretty good today. He still has a mild productive cough but this is improving. He denies shortness of breath, he feels like his breathing is back at baseline. He has fever, chills, chest pain. - Constitutional Vitals: Temp Pulse Resp BP Pulse Ox 98.2 F 88 16 117/66 96 09/20/16 07:35 09/20/16 07:39 09/20/16 09:22 09/20/16 07:36 09/20/16 09:22 General appearance: Present: A&O X 3, no acute distress, answers questions appropriately - Respiratory Respiratory exam: Present: decreased breath sounds, rhonchi (Right lower lobe). Absent: rales - Cardiovascular Cardiovascular exam: Present: RRR. Absent: gallop, rubs, systolic murmur - GI/Abdominal GI/Abdominal exam: Present: normal bowel sounds, soft. Absent: distended, tenderness - Extremities Exam Extremities exam: Present: warm, radial pulses palpable and symmetrical. Absent : pedal edema, tenderness - Neurological Exam Neurological exam: Present: alert, CN II-XII intact, oriented X3, no focal deficits Internal Medicine: Result - Labs CBC & Chem 7: 09/20/16 06:16 09/20/16 06:16 Labs: Short CBC 09/20/16 Range/Units 06:16 WBC 17.4 H (4.3-11.1) K/mcL Hgb 8.4 L (12.9-16.9) g/dL Hct 24.9 L (37.5-50.1) % Plt Count 338 (140-400) K/mcL Neutrophils # 14.1 H (1.6-8.9) K/mcL BMP 09/19/16 09/20/16 10:27 06:16 Sodium 123 L 127 L Potassium 3.9 3.8 Chloride 93 L 97 L Carbon Dioxide 23 24 BUN 13 13 Creatinine 0.80 0.71 L Glucose 206 H 122 H Calcium 8.7 8.5 L - ABG Interpretation ABG results: ABG ABG pH 7.43 pH Units (7.32-7.45) 09/18/16 13:40 ABG pCO2 35 mmHg (35-45) 09/18/16 13:40 ABG pO2 30 mmHg (85-104) L* 09/18/16 13:40 ABG O2 Saturation 60 % (95-98) L 09/18/16 13:40 PT/INR, D-dimer PT 11.4 Seconds (9.4-12.1) 09/19/16 06:13 Consult Discharge Plan - Plan Referrals: Shankar Menezes, CUSTOM CAR BUILDER [Primary Care Provider] - <Wallace Almonte H - Last Filed: 09/20/16 14:38> Date of Encounter: 09/20/16 - Constitutional Vitals: Temp Pulse Resp BP Pulse Ox 98.0 F 80 16 137/75 96 09/20/16 11:44 09/20/16 12:00 09/20/16 12:00 09/20/16 12:00 09/20/16 12:00 Internal Medicine: Result - Labs CBC & Chem 7: 09/20/16 06:16 09/20/16 06:16 Labs: Short CBC 09/20/16 Range/Units 06:16 WBC 17.4 H (4.3-11.1) K/mcL Hgb 8.4 L (12.9-16.9) g/dL Hct 24.9 L (37.5-50.1) % Plt Count 338 (140-400) K/mcL Neutrophils # 14.1 H (1.6-8.9) K/mcL BMP 09/20/16 06:16 Sodium 127 L Potassium 3.8 Chloride 97 L Carbon Dioxide 24 BUN 13 Creatinine 0.71 L Glucose 122 H Calcium 8.5 L - ABG Interpretation ABG results: ABG ABG pH 7.43 pH Units (7.32-7.45) 09/18/16 13:40 ABG pCO2 35 mmHg (35-45) 09/18/16 13:40 ABG pO2 30 mmHg (85-104) L* 09/18/16 13:40 ABG O2 Saturation 60 % (95-98) L 09/18/16 13:40 PT/INR, D-dimer PT 11.4 Seconds (9.4-12.1) 09/19/16 06:13 - Attending Attestation Possible aspiration pneumonia present upon admission Discontinue vancomycin IV and Zosyn Start Unasyn I examined this patient and my medical decision-making was reviewed with the Resident Physician. I agree with the documented findings, disposition and treatment plan as described except to the extent set forth below.
--- NOTE | 2016-09-20 13:02 | Nephrology Progress Note ---
Date of Encounter: 09/20/16 Time of Encounter: 11:30 - Assessment and Plan (1) Hyponatremia Current Visit: No Status: Chronic Sodium improving at 127 with salt tabs, will continue Continue strict fluid restriction 1,5 liter a day Urine osm high at over 600 along with low uric acid coonsistent with SIADH Pt does have CTA chest earlier this month showing pulm nodule at 9mm, discussed at length need for followup to rule out malignancy given SIADH picture (2) Pneumonia Current Visit: No Status: Acute Qualifiers: Pneumonia type: due to unspecified organism Laterality: right Lung location: lower lobe of lung Qualified Code(s): J18.1 - Lobar pneumonia, unspecified organism (3) ETOH abuse Current Visit: No Status: Chronic Subjective Principal diagnosis: Shortness of breath Interval history: Pt seen and examined sitting up in chair feeling better overall. Objective - Vital Signs Vital signs: Vital Signs Temp Pulse Resp BP Pulse Ox 09/20/16 12:00 80 16 137/75 96 09/20/16 11:44 98.0 F 09/20/16 09:22 16 96 09/20/16 07:39 88 09/20/16 07:36 88 16 117/66 96 09/20/16 07:35 98.2 F 09/20/16 06:00 84 20 123/62 98 09/20/16 04:04 17 100 09/20/16 04:00 98.6 F 84 21 129/77 100 09/20/16 03:51 98.6 F 09/20/16 02:00 74 18 140/72 98 09/20/16 00:00 83 18 132/69 100 09/19/16 23:46 98.5 F 09/19/16 21:49 87 22 152/82 100 09/19/16 21:39 31 96 09/19/16 20:00 89 33 147/89 99 09/19/16 19:40 98.2 F 09/19/16 17:00 93 18 125/58 100 09/19/16 15:45 18 100 09/19/16 15:37 87 09/19/16 15:00 97.4 F L 84 18 125/62 09/19/16 13:00 92 18 135/68 100 Intake and Output 09/19/16 09/20/16 09/20/16 23:59 07:59 15:59 Intake Total 100 / 100 861.2 / 861.2 100 / 100 Output Total 325 / 325 1350 / 1350 250 / 250 Balance -225 / -225 -488.8 / -488.8 -150 / -150 Intake: IV Fluids 100 / 100 861.2 / 861.2 100 / 100 Zosyn 3.375 GM In 100 / 100 100 / 100 100 / 100 Dextrose 5% (Minibag+) 100 ML 100 ML @ 25 mls/hr IVPB Q8H [facility] Rx#: [id number] Vitamin B-1 100 MG 511.2 / 511.2 Folvite 1 MG M.v.i. Adult 10 ml In 0.9 % Sodium Chloride 500 ML @ 85.2 mls/hr IVPB DAILY@1800 [facility] Rx#:[id number] Vancocin 1,250 MG In 250 / 250 Dextrose 5% 250 ML @ 166. 667 mls/hr IVPB Q8H [facility] Rx#:[id number] Output: Urine 325 / 325 1350 / 1350 250 / 250 Other: Stool Size Moderate Stool Consistency formed Stool Color Brown Weight 81.865 kg Blood Glucose* 159 106 Patient Weight 09/20/16 23:59 Weight 81.865 kg - Lab 09/20/16 06:16 09/20/16 06:16 Most recent lab results ABG pH 7.43 pH Units (7.32-7.45) 09/18/16 13:40 ABG pCO2 35 mmHg (35-45) 09/18/16 13:40 ABG pO2 30 mmHg (85-104) L* 09/18/16 13:40 ABG HCO3 23.2 mEQ/L (21-27) 09/18/16 13:40 ABG O2 Saturation 60 % (95-98) L 09/18/16 13:40 Calcium 8.5 mg/dL (8.6-10.8) L 09/20/16 06:16 Phosphorus 3.1 mg/dL (2.3-4.7) 09/19/16 06:13 Magnesium 1.4 mg/dL (1.6-2.6) L 09/20/16 06:16 Consult Discharge Plan - Plan Referrals: Shankar Menezes, TERADATA SOLUTION ARCHITECT [Primary Care Provider] -
[2016-09-20] MEDS: Ampicillin/Sulbactam 3,000 MG in 0.9 % Sodium Chloride Mini Bag 100 ML IVPB SCH ×2 (15:22→19:58)
[2016-09-20] MEDS: Thiamine (B-1) 100 MG, Folic Acid 1 MG, MVI, adult with vitamin K 10 ML in 0.9 % Sodi... IVPB SCH (18:20)
--- NOTE | 2016-09-20 19:38 | Vascular/Endovas Progress Note ---
Date of Encounter: 09/20/16 Time of Encounter: 15:30 - Assessment and plan (1) PAD (peripheral artery disease) Current Visit: No Status: Chronic The patient is status post a right femoral to popliteal artery bypass. His foot is warm, his pedal signals are polyphasic and his incisions are intact. His wounds are healing well. He has no signs or symptoms of ongoing infection. The wounds may be left open to air. Patient is scheduled to follow-up with Dr. Morse next week. Will sign off. (2) Anemia Current Visit: No Status: Acute The patient has acute expected postoperative blood loss anemia. He is hemodynamically stable. Qualifiers: Anemia type: other cause Other causes of anemia: acute posthemorrhagic Qualified Code(s): D62 - Acute posthemorrhagic anemia - Subjective Interval history: The patient is feelin much better today. He is alert and comfortable. He denies fevers or chills. Vital Signs, Last 4 Hours Temp Pulse Resp BP Pulse Ox 09/20/16 16:58 98.1 F 81 16 119/61 94 - Physical Examination General: Present: Conversant Vascular: Present: Pulse, normal (right), Surgical incisions (incisions are clena, dry and intact without erythem or drainage. Minimal serous drainage on badage from yesterday.) Results 09/20/16 06:16 09/20/16 06:16 Lab Results, Last 24 hours 09/20/16 09/20/16 09/20/16 06:16 06:16 06:16 WBC 17.4 H Hgb 8.4 L Hct 24.9 L Plt Count 338 Sodium 127 L Potassium 3.8 Chloride 97 L Carbon Dioxide 24 BUN 13 Creatinine 0.71 L Glucose 122 H Calcium 8.5 L Magnesium 1.4 L Consult Discharge Plan - Plan Referrals: Shankar Menezes, SAW BOSS [Primary Care Provider] -
[2016-09-21] MEDS: Ampicillin/Sulbactam 3,000 MG in 0.9 % Sodium Chloride Mini Bag 100 ML IVPB SCH ×2 (01:54→08:05)
[2016-09-21] MEDS: Acetaminophen 325 MG TABLET PO PRN ×2 (01:57→11:17)
[2016-09-21] MEDS: Ipratropium/Albuterol Neb 3 ML IH SCH ×2 (04:08→10:53)
[2016-09-21 04:53] LABS: Basophils # 0.1 K/mcL (0.0-0.2); Basophils % 0.3 %; Eosinophils # 0.1 K/mcL (0.0-0.6); Eosinophils % 0.8 %; Hematocrit 27.4 % (37.5-50.1); Hemoglobin 9.2 g/dL (12.9-16.9); Immature Granulocytes % 2.1 % (0-4); Lymphocytes # 1.1 K/mcL (0.6-4.6); Lymphocytes % 7.1 %; Mean Corpuscular HGB Conc 33.6 g/dL (31.6-35.5); Mean Corpuscular Hemoglobin 28.8 pg (28.0-33.3); Mean Corpuscular Volume 85.6 fL (83.0-100.0); Mean Platelet Volume 8.9 fL (9.4-12.4); Monocytes # 1.6 K/mcL (0.0-1.3); Neutrophils # 12.8 K/mcL (1.6-8.9); Platelet Count 366 K/mcL (140-400); Red Cell Distribution Width 14.4 % (11.5-14.5); Segmented Neutrophils % 79.7 %
[2016-09-21 04:58] LABS: BUN/Creatinine Ratio 15 (6-26); Blood Urea Nitrogen 10 mg/dL (8-26); Calcium 8.5 mg/dL (8.6-10.8); Carbon Dioxide 24 mEq/L (19-29); Chloride 95 mEq/L (98-109); Glucose 98 mg/dL (70-99); Osmolality,Calculated 259 (280-300); Potassium 4.1 mEq/L (3.5-4.5); Sodium 125 mEq/L (136-145); eGFR For African Americans > 60 (> 60); eGFR For Non-African Americans > 60 (> 60)
[2016-09-21] MEDS: Diltiazem CD (24hr) 180 MG CAPSULE PO SCH (08:04)
[2016-09-21] MEDS: Sennosides 8.6 MG TABLET PO SCH (08:06)
[2016-09-21] MEDS: Insulin LISPRO 300 UNITS/3 ML VIAL SQ SCH (08:06)
--- NOTE | 2016-09-21 09:10 | Discharge Summary ---
Addendum entered and electronically signed by Lee Stratton DO 09/21/16 10:25: Will continue sodium tablets at home. Rx has been written Original Note: <Lee Stratton - Last Filed: 09/21/16 09:06> Date of Encounter: 09/21/16 Time of Encounter: 09:06 - Discharge Diagnosis (1) Pneumonia Priority: Primary Status: Acute Qualifiers: Pneumonia type: due to unspecified organism Laterality: right Lung location: lower lobe of lung Qualified Code(s): J18.1 - Lobar pneumonia, unspecified organism (2) COPD (chronic obstructive pulmonary disease) Priority: Secondary Status: Chronic Qualifiers: COPD type: unspecified COPD Qualified Code(s): J44.9 - Chronic obstructive pulmonary disease, unspecified (3) PAD (peripheral artery disease) Priority: Secondary Status: Chronic (4) Anemia Priority: Secondary Status: Resolved Qualifiers: Anemia type: other cause Other causes of anemia: acute posthemorrhagic Qualified Code(s): D62 - Acute posthemorrhagic anemia (5) ETOH abuse Priority: Secondary Status: Chronic (6) Hyponatremia Priority: Secondary Status: Chronic (7) Pulmonary nodule Priority: Secondary Status: Chronic (8) A-fib Priority: Secondary Status: Chronic Qualifiers: Atrial fibrillation type: paroxysmal Qualified Code(s): I48.0 - Paroxysmal atrial fibrillation (9) Hypertension Priority: Secondary Status: Acute Qualifiers: Hypertension type: essential hypertension Qualified Code(s): I10 - Essential (primary) hypertension - Discharge Medications Prescriptions: Amoxicillin/Clavulanate [Augmentin] 875 mg PO BIDWM #12 tablet Sodium Chloride 1,000 mg MC BID #60 tablet.varinder Home Medications: Aspirin [Ecotrin] 325 mg PO DAILY 07/29/16 [History] Atenolol [Tenormin] 50 mg PO BID 07/29/16 [History] Diltiazem HCl [Diltiazem 24Hr Cd] 180 mg PO DAILY 07/29/16 [History] Lisinopril [Zestril] 20 mg PO BID 07/29/16 [History] Omeprazole [PriLOSEC] 20 mg PO DAILY 07/29/16 [History] Spironolactone [Aldactone] 25 mg PO DAILY 07/29/16 [History] Albuterol Sulfate [Albuterol Inhaler] 2 puff IH Q4HR PRN 08/18/16 [History] Tiotropium [place] [Spiriva Respimat] 4 gm IH DAILY #0 08/18/16 [History] hydrOXYzine HCl [Hydroxyzine HCl] 25 mg PO Q6H PRN 08/18/16 [History] HYDROcodone/Acet 5/325 mg [[place] 5-325 mg] 1 tab PO Q6H PRN #30 tab 09/13/16 [Rx ] Lovastatin [Mevacor] 20 mg PO HS #30 tablet 09/13/16 [Rx] Amoxicillin/Clavulanate [Augmentin] 875 mg PO BIDWM #12 tablet 09/21/16 [Rx] Sodium Chloride 1,000 mg MC BID #60 tablet.varinder 09/21/16 [Rx] Allergies/Adverse Reactions: No Known Allergies Allergy (Verified 09/12/16 10:43) Date of admission: 09/17/16 23:43 Primary care physician: Shankar Menezes CNP Consults: 09/18/16 03:12 Consult to Nephrology [CONS] Routine Consulting Provider: Kidney [facility]ron/LYLE/GIGI/ISHAAN Reason for Consult: chronic hyponatremia Call Completed: No Consult to Vascular Surgery [CONS] Routine Consulting Provider: Vascular Surgery [place] Reason for Consult: right fempop bypass, possible cellulitis of right LE at incision site Call Completed: No 09/18/16 05:01 Consult to Pulmonology [CONS] Routine Consulting Provider: Pulm Crit Care & Sleep Denise Reason for Consult: Hx COPD, not oxygen dependent at home; s/p fempop bypass ; 2-3 days of cough and fever; RLL pneumonia, on BIPAP, solumedrol, duonebs, albuterol Call Completed: No Discharging clinician: Lee Stratton Anticipated date of discharge: 09/21/16 - Patient Status Disposition: Home, Self-Care Condition: Good Functional capacity at discharge: independent ambulation Overall status at discharge: patient is back to baseline - Discharge Instructions Follow Up With: Shankar Menezes CNP [Primary Care Provider] - 09/28/16 11:00 am Josue Morse MD [Partnered Physician] - 09/25/16 9:15 am (Next week, should already have an appointment) Additional Instructions: Please follow-up with your PCP as scheduled. Please follow up with Dr. Lomas as scheduled. Please resume your home medications. Please take your antibiotic until gone. We would recommend continuing to cut back on your alcohol intake. Please return for any new or worsening symptoms. - Diet and Activity Activity: increase activity as tolerated Diet: advance to your usual diet Interval History: Patient seen and examined at bedside. Patient states that he feels good today. He has no complaints at this time. He denies shortness of breath. He reports a mild cough with a small amount of yellow sputum. This is improved from yesterday. He denies fever, chills, chest pain. Hospital course: Mr. Mars is a 61 year old male with history of COPD, alcohol abuse presented with shortness of breath and cough. CT exam performed at outside hospital revealed a right lower lobe pneumonia. Patient received IV fluids, antibiotics. Patient did have some mild hypotension that responded well to fluids. Patient responded well to antibiotics and by day 3 he felt like he was back to his baseline. Patient was also anemic on arrival with a hemoglobin of 6.4. This was thought to be related to blood loss due to recent femoropopliteal bypass 2 weeks ago. Patient received 2 units of packed red blood cells and his hemoglobin responded nicely and stayed stable throughout his hospitalization. He was evaluated by the vascular surgery service who felt this was normal postoperative losses. No active bleeding was noted during this patient's hospital stay. Of note the patient also has atrial fibrillation with a [id number] of 2 and we discussed anticoagulation with the patient. Patient stated that he proves frequently and blood significantly when he cut himself so he is not interested in starting anticoagulation at this time. Risk of stroke was discussed and the patient verbalized understanding. Recommended that the patient further discuss this with his PCP at discharge. Patient feels like he is back to his baseline and is requesting to go home. Patient discharged home in stable condition. - Time Spent with Patient Total time spent providing and/or coordinating discharge services: Less than 30 minutes - Constitutional Vitals: Temp Pulse Resp BP Pulse Ox 98.8 F 80 16 136/72 95 09/21/16 06:29 09/21/16 06:29 09/21/16 06:29 09/21/16 06:29 09/21/16 06:29 General appearance: Present: A&O X 3, no acute distress, answers questions appropriately - Respiratory Respiratory exam: Present: decreased breath sounds, rhonchi (Mild, right lower lobe, improved from yesterday). Absent: respiratory distress, wheezes, tachypnea - Cardiovascular Cardiovascular exam: Present: irregular rhythm. Absent: gallop, rubs, systolic murmur, tachycardia - GI/Abdominal GI/Abdominal exam: Present: normal bowel sounds, soft. Absent: distended, tenderness - Extremities Exam Extremities exam: Present: warm. Absent: pedal edema, tenderness - Neurological Exam Neurological exam: Present: alert, altered, CN II-XII intact, oriented X3, no focal deficits <Wallace Almonte - Last Filed: 09/21/16 10:29> Date of Encounter: 09/21/16 Date of admission: 09/17/16 23:43 Primary care physician: Shankar Menezes CNP Consults: 09/18/16 03:12 Consult to Nephrology [CONS] Routine Consulting Provider: Kidney Denise/LYLE/GIGI/ISHAAN Reason for Consult: chronic hyponatremia Call Completed: No Consult to Vascular Surgery [CONS] Routine Consulting Provider: Vascular Surgery [facility] Reason for Consult: right fempop bypass, possible cellulitis of right LE at incision site Call Completed: No 09/18/16 05:01 Consult to Pulmonology [CONS] Routine Consulting Provider: Pulm Crit Care & Sleep Rh[place]ron Reason for Consult: Hx COPD, not oxygen dependent at home; s/p fempop bypass ; 2-3 days of cough and fever; RLL pneumonia, on BIPAP, solumedrol, duonebs, albuterol Call Completed: No Hospital course: Mr. Mars is a 61 year old male - Time Spent with Patient Total time spent providing and/or coordinating discharge services: - Constitutional Vitals: Temp Pulse Resp BP Pulse Ox 98.8 F 80 16 136/72 95 09/21/16 06:29 09/21/16 06:29 09/21/16 06:29 09/21/16 06:29 09/21/16 06:29 - Attending Attestation Hypoxic respiratory failure secondary to aspiration pneumonia present upon admission Continue Augmentin as outpatient Hyponatremia, likely secondary to poor oral intake Continue salt tablets I examined this patient and my medical decision-making was reviewed with the Resident Physician. I agree with the documented findings, disposition and treatment plan as described except to the extent set forth below.
[2016-09-21] MEDS: Budesonide/Formoterol 80/4.5 MDI IH SCH (10:53)
[2016-09-21 11:09] VITALS: BP 145/80
--- NOTE | 2016-09-21 11:50 | Nephrology Progress Note ---
Date of Encounter: 09/21/16 Time of Encounter: 11:48 - Assessment and Plan (1) Hyponatremia Current Visit: No Status: Chronic Na+ 125 BMP one week after discharge F/U with Dr Kirkpatrick in office-patient already has an appointment (2) ETOH abuse Current Visit: No Status: Chronic per primary team Subjective Principal diagnosis: Shortness of breath Interval history: Patient seen and examined. Being discharged today. Objective - Vital Signs Vital signs: Vital Signs Temp Pulse Resp BP Pulse Ox 09/21/16 10:56 18 96 09/21/16 10:00 98.2 F 91 16 145/80 97 09/21/16 06:29 98.8 F 80 16 136/72 95 09/21/16 05:06 98.8 F 83 14 130/64 94 09/21/16 04:08 16 92 09/21/16 01:17 99.3 F 88 14 144/72 93 09/20/16 22:42 15 94 09/20/16 20:33 99.8 F H 77 14 130/69 95 09/20/16 16:58 98.1 F 81 16 119/61 94 09/20/16 14:50 16 96 09/20/16 12:00 80 16 137/75 96 Intake and Output 09/20/16 09/21/16 09/21/16 23:59 07:59 15:59 Intake Total 570 / 570 590 / 590 220 / 220 Output Total 250 / 250 950 / 950 Balance 320 / 320 -360 / -360 220 / 220 Intake: IV Fluids 450 / 450 100 / 100 100 / 100 Unasyn 3,000 MG In 0.9 % 200 / 200 100 / 100 100 / 100 Sodium Chloride (Mini-Bag +) 100 ML @ 200 mls/hr IVPB Q6H [facility] Rx#: [id number] Oral 120 / 120 490 / 490 120 / 120 Output: Urine 250 / 250 950 / 950 Other: Meal Dinner Breakfast Percent of Meal Consumed 25% 75% Weight 81.647 kg Blood Glucose* 155 101 Patient Weight 09/21/16 23:59 Weight 81.647 kg - General Appearance General appearance: Present: cachectic EENT: Present: ATNC, mucous membranes moist, hearing intact, vision intact Neck: Present: supple Respiratory: Present: clear Cardiology: Present: no edema, regular rate, regular rhythm Integumentary: Present: warm and dry Neurologic: Present: alert and oriented x3 Psychiatric: Present: mood/affect appropriate, cooperative - Lab 09/21/16 04:25 09/21/16 04:25 Most recent lab results ABG pH 7.43 pH Units (7.32-7.45) 09/18/16 13:40 ABG pCO2 35 mmHg (35-45) 09/18/16 13:40 ABG pO2 30 mmHg (85-104) L* 09/18/16 13:40 ABG HCO3 23.2 mEQ/L (21-27) 09/18/16 13:40 ABG O2 Saturation 60 % (95-98) L 09/18/16 13:40 Calcium 8.5 mg/dL (8.6-10.8) L 09/21/16 04:25 Phosphorus 3.1 mg/dL (2.3-4.7) 09/19/16 06:13 Magnesium 1.4 mg/dL (1.6-2.6) L 09/20/16 06:16 Consult Discharge Plan - Plan Instructions: Atrial Fibrillation (DC) Additional Instructions: Please follow-up with your PCP as scheduled. Please follow up with Dr. Lomas as scheduled. Please resume your home medications. Please take your antibiotic until gone. We would recommend continuing to cut back on your alcohol intake. Please return for any new or worsening symptoms. Referrals: Shankar Menezes CNP [Primary Care Provider] - 09/28/16 11:00 am Josue Morse MD [Partnered Physician] - 09/25/16 9:15 am (Next week, should already have an appointment) Prescriptions: Amoxicillin/Clavulanate [Augmentin] 875 mg PO BIDWM #12 tablet Sodium Chloride 1,000 mg MC BID #60 tablet.varinder
[2016-09-21] MEDS ORDERED: Aminoglycoside Consult 1 EACH MC ONE (12:09)
== END 2016-09-21 12:10 | disposition home or self-care (01) | DRG 871 ==
LOC: SUATTDRO 23:43 → ICNU 23:43 → 3ANU 09-20 16:47
PROVIDERS: ADMIT Internal Medicine; ATTEND Internal Medicine

== ENCOUNTER 2016-10-26 06:18 | Inpatient (IN) ==
[2016-10-26] MEDS ORDERED: Lidocaine -MPF 1% 2 ML VIAL ID ONE (06:32)
[2016-10-26] MEDS ORDERED: Albuterol 2.5 MG/3 ML NEBULIZER IH ONE (06:32)
[2016-10-26] MEDS ORDERED: CeFAZolin Pre 2,000 MG/100 ML 2,000 MG/100 ML BAG IVPB ONE (06:32)
[2016-10-26] MEDS ORDERED: Ringers Solution, Lactated 1,000 ML IVC SCH (06:45)
[2016-10-26] MEDS ORDERED: *HR* Remifentanil 2 MG VIAL IVP ONE ×2 (07:10→11:48)
[2016-10-26] MEDS ORDERED: *HR* Midazolam HCl 2 MG/2 ML VIAL ONE (07:10)
[2016-10-26] MEDS ORDERED: *HR* Propofol 200 MG/20 ML VIAL IVP ONE (07:10)
--- NOTE | 2016-10-26 07:11 | Anesthesia Evaluation PreOp ---
Date of Encounter: 10/26/16 Time of Encounter: 07:09 - Past History Planned Operation: Left Fem-Pop Bypass Graft Cardiac History: HTN, Arrhythmia (H/O A-Fib) Pulmonary History: Smoker (40+ year), COPD, Other (lung CA-being followed) TOP ICER History: Denies Any Significant HX Other Medical History: Hepatic (livwr cirrhosis) Anesthesia History: No Prior Anesthetic Complications, Past Anesthesia Alcohol Use: heavy Drug use: none Medications and Allergies Aspirin [Ecotrin] 325 mg PO DAILY 07/29/16 [History] Atenolol [Tenormin] 50 mg PO BID 07/29/16 [History] Diltiazem HCl [Diltiazem 24Hr Cd] 180 mg PO DAILY 07/29/16 [History] Lisinopril [Zestril] 20 mg PO BID 07/29/16 [History] Omeprazole [PriLOSEC] 20 mg PO DAILY 07/29/16 [History] Spironolactone [Aldactone] 25 mg PO DAILY 07/29/16 [History] Albuterol Sulfate [Albuterol Inhaler] 2 puff IH Q4HR PRN 08/18/16 [History] Tiotropium [place] [Spiriva Respimat] 4 gm IH DAILY #0 08/18/16 [History] hydrOXYzine HCl [Hydroxyzine HCl] 25 mg PO Q6H PRN 08/18/16 [History] HYDROcodone/Acet 5/325 mg [[place] 5-325 mg] 1 tab PO Q6H PRN #30 tab 09/13/16 [Rx ] Lovastatin [Mevacor] 20 mg PO HS #30 tablet 09/13/16 [Rx] Sodium Chloride 1,000 mg MC BID #60 tablet.varinder 09/21/16 [Rx] 3 Allergy/AdvReac Type Severity Reaction Status Date / Time acetaminophen [From Vicodin] AdvReac See Verified 10/26/16 07:40 Comments hydrocodone [From Vicodin] AdvReac See Verified 10/26/16 07:40 Comments - Meds/Allergy Pre-op Review Medications Reviewed: Yes Allergies Reviewed: Yes Beta Blockers on Current Med List: Yes If Beta Blockers taken, Date/Time (Last Dose taken): 10/26/2016 at 0430 Anesthesia Results - Labs Laboratory Tests 10/10/16 10/23/16 10/23/16 13:02 19:30 19:30 WBC 7.2 Hgb 8.8 L Hct 25.1 L Plt Count 296 PT 10.8 INR 1.0 APTT 28.7 Sodium 122 L Potassium 4.5 BUN 12 Creatinine 0.75 - Imaging EKG: report reviewed (09/17/2016 SR) Additional studies: 08/23/2016 STress Impression: Technically challenging study due to patient motion and bowel wall attenuation. There is a small sized apical defect representing artifact. Increased bowel uptake obscures interpretation of the inferior wall. Gated EF 62%. Normal wall motion. No identifiable ischemia or infarct on this study. Anesthesia Exam O2 Sat Height 1.68 m Height 1.68 m Height 1.68 m Weight 78.925 kg Weight 78.925 kg Weight 78.925 kg O2 Sat by Pulse Oximetry 97 Vital Signs Temp Pulse Resp BP Pulse Ox 98.1 F 76 18 143/72 97 10/26/16 07:10 10/26/16 07:10 10/26/16 07:10 10/26/16 07:10 10/26/16 07:10 Height: 5'6'' Weight: 174 lbs - HEENT Pupil (Motor): EOMI Mallampati: II Teeth: Missing (missing numerous teeth), Poor dentition Oral Opening: Greater than 3 - TOP ICER LOC: Oriented TOP ICER Motor: Normal RUE, Normal LUE, Normal RLE, Normal LLE, Normal Face TOP ICER Sensory: Normal: RUE, LUE, RLE, LLE, Face - Cardiac Rhythm: Regular Murmur: None - Pulmonary Breath Sounds: bilateral Clear Respiratory Effort: Symmetrical Anesthesia Assess/Plan ASA Score: 4 (ptPatient and family understand that is at increased risk for perioperative complications including myocardial infarct, arrhythmias, CVA, post op vent support/ICU stay, and . Patient and family wish to proceed.) Modified [place] Scale for Level of Consciousness: Cooperative, oriented, and tranquil Anesthetic Plan: General Monitoring Plan: Standard Monitors, A-Line Recovery Plan: PACU
[2016-10-26] MEDS ORDERED: Heparin 1,000 UNITS/500 mL NS 1,000 ML ONE (07:13)
[2016-10-26] MEDS ORDERED: Ketamine *HR* 500 MG/10 ML MDV ONE (07:19)
[2016-10-26] MEDS ORDERED: Heparin 1,000 UNITS/500 mL NS 500 ML ONE (07:21)
--- NOTE | 2016-10-26 07:37 | History & Physical Report ---
Date of Encounter: 10/26/16 Time of Encounter: 07:25 24 Hour HP Update - Instructions Instructions: If the History and Physical is less than 30 days old and was completed prior to A.M. admission and or procedure and has NOT been updated on calendar day of procedure please complete this update prior to performing procedure. - Update Patient reports changes in Medical Condition: No Changes in examination, assessment, or condition: No Changes in Medication: No Preop tests/diagnostics Reviewed: Yes Pre-Op MRSA Screen: Negative Surgery Remains Indicated: Yes Consent for Planned Operative Procedure(s) Verified: Yes - Pre-Operative Checklist Preoperative Checklist Indicated: Yes Prophylactic Antibiotic Ordered: Yes Home Medications Include Beta Olivia: Yes Beta Olivia Taken Today (Day of Surgery): Yes Beta Olivia Taken Yesterday (Day Prior to Surgery): Yes Is VTE Prophylaxis Indicated?: Yes
[2016-10-26] MEDS ORDERED: Hydrocortisone Sodium Succ 100 MG/2 ML VIAL ONE (07:53)
[2016-10-26] MEDS ORDERED: *HR* Labetalol 20 MG/4 ML SYRINGE IVP PRN (09:00)
[2016-10-26] MEDS ORDERED: *HR* Promethazine 25 MG/ML VIAL IVP PRN (09:00)
[2016-10-26] MEDS ORDERED: *HR* Succinylcholine 200 MG/10 ML VIAL IVP ONE (09:20)
[2016-10-26] MEDS ORDERED: Lidocaine -MPF 4% 5 ML AMPUL ONE (09:20)
[2016-10-26] MEDS ORDERED: *HR* Rocuronium Bromide 50 MG/5 ML VIAL ONE (09:20)
[2016-10-26] MEDS ORDERED: Lidocaine -MPF 2% 2 ML VIAL ONE (09:20)
[2016-10-26] MEDS ORDERED: Ondansetron 4 MG/2 ML VIAL ONE (09:20)
[2016-10-26] MEDS ORDERED: Dexamethasone 4 MG/ML VIAL ONE (09:20)
[2016-10-26] MEDS ORDERED: *HR* Heparin 5,000 UNIT/ML VIAL ONE (11:13)
[2016-10-26] MEDS ORDERED: *HR* Morphine 10 MG/ML VIAL ONE (13:19)
--- NOTE | 2016-10-26 13:31 | Operative Note ---
Date of procedure: 10/26/16 Pre-op diagnosis: PAD/claudication Post-op diagnosis: same Procedure: Left femoral to above-knee popliteal artery bypass graft with reverse greater saphenous vein Left common femoral artery endarterectomy with bovine pericardial patch angioplasty Complications: None Anesthesia: ELEANORA Surgeon: Josue Morse Estimated blood loss (cc): 200 Specimen: None Condition: stable Disposition: PACU Procedure in Detail: History Hill Mars is a 61-year-old white male returns to the operating room for revascularization of left lower extremity. Patient had undergone angiography and bilateral lower extremity disease was identified. He had undergone a right lower extremity bypass graft approximately 5 weeks ago. Patient now returns for the left lower extremity today. Procedure After informed consent was obtained the patient was taken to the operating room. General endotracheal anesthesia was established. The left lower extremity was sterilely prepped and draped. A timeout protocol was observed. An incision was made at the left groin with dissection carried down to the common femoral artery and femoral bifurcation. Very dense and thick plaque was present. The pulse was not transmitted through the wall of the vessel because of the density of the plaque. Controls obtained of the vessels. Attention was then directed to the vein. The vein was identified at the fossa ovalis and was dissected distally. It was dissected down to the level of the patella. Dissection was then made of the [id number] popliteal artery. A dramatic cutoff of the plaque was identified in the distal above-knee popliteal artery. Therefore the dissection was carried to the area immediately distal to the plaque where the vessel was relatively soft. The patient then had a subsartorial tunnel created. Heparin was administered a dose of 5000 units. An arteriotomy was made over the anterior aspect of the common femoral artery. Essentially the entire length of the common femoral artery was entered and artery rectum eyes. The orifice of the superficial femoral artery and the profunda femoris artery were also endarterectomized. The bed of the vessels then inspected for any residual debris. A bovine pericardial patch was then performed and this was sewn in position using 6-0 Prolene suture. A graftotomy was then made over the patch. The vein which had been harvested was placed in a reversed orientation. The vein had been previously flushed and checked for leaks. The anastomosis was performed at the proximal anastomosis end to side with 6-0 Prolene. The vein was then passed through the tunnel. The distal anastomosis was then created end to side. Again the vessel at this level is relatively soft there's no significant disease beyond the area of the calcification. After appropriate backbleeding and flushing the distal anastomosis was opened. The patient demonstrated a strong palpable pulse through the graft and into the popliteal artery. Doppler signal was identified over the posterior tibial artery at the ankle. The incisions were then irrigated and hemostasis achieved. The wounds were then closed in layers using absorbable suture. Dry sterile dressings were applied. The patient was taken from the operating room to the recovery room in stable condition.
[2016-10-26] MEDS: *HR* HYDROmorphone (PF) 1 MG/ML SYRINGE IVP PRN ×2 (13:40→13:50)
[2016-10-26] MEDS ORDERED: Albuterol 2.5 MG/3 ML NEBULIZER ONE (13:46)
[2016-10-26] MEDS ORDERED: *HR* HYDROmorphone (PF) 1 MG/ML SYRINGE ONE (13:54)
--- NOTE | 2016-10-26 14:21 | Anesthesia Evaluation Post Op ---
Date of Encounter: 10/26/16 Time of Encounter: 14:19 - Vital Signs Vital Signs: Vital Signs/O2 Sat, Most Current Temp Pulse Resp BP Pulse Ox 97.1 F L 77 16 137/73 100 10/26/16 13:37 10/26/16 13:47 10/26/16 13:47 10/26/16 13:47 10/26/16 13:47 - Lungs Lungs: Wheezes (faint exp wheeze, discussed with Dr James, no significant change from pre op, pt denies SOB) - Airway Airway: Non-obstructed - Cardiovascular Regular Rate - Mental Status Mental Status: Asleep with brisk response to light stimulation - Pain Pain Scale: 5 Pain Scale used: Numeric (1 - 10) - Nausea Vomiting Nausea Vomiting: Not Present - Hydration Hydration: NPO, Brown catheter - Discharge PostOp Status: Transfer Patient to floor
[2016-10-26] MEDS ORDERED: Naloxone 0.4 MG/ML INJ IVP PRN (14:58)
[2016-10-26] MEDS ORDERED: Ondansetron 4 MG/2 ML VIAL IVP PRN (14:58)
[2016-10-26 16:05] LABS: Hematocrit 23.4 % (37.5-50.1); Hemoglobin 7.5 g/dL (12.9-16.9)
[2016-10-26] MEDS: ceFAZolin 2,000 MG in D5% in Water 100 ML IVPB SCH (16:57)
[2016-10-26] MEDS ORDERED: 0.9 % Sodium Chloride 500 ML ONE (20:06)
[2016-10-26] MEDS ORDERED: hydrOXYzine pamoate 25 MG CAPSULE PO SCH (21:00)
[2016-10-26] MEDS: Lisinopril 20 MG TABLET PO SCH (21:26)
[2016-10-27] MEDS: ceFAZolin 2,000 MG in D5% in Water 100 ML IVPB SCH ×2 (00:12→07:57)
[2016-10-27 04:00] LABS: Hematocrit 25.5 % (37.5-50.1); Hemoglobin 8.3 g/dL (12.9-16.9); Immature Granulocytes % 0.8 % (0-4); Lymphocytes # 0.9 K/mcL (0.6-4.6); Lymphocytes % 9.3 %; Mean Corpuscular HGB Conc 32.5 g/dL (31.6-35.5); Mean Corpuscular Hemoglobin 28.2 pg (28.0-33.3); Mean Corpuscular Volume 86.7 fL (83.0-100.0); Monocytes # 0.8 K/mcL (0.0-1.3); Monocytes % 8.3 %; Neutrophils # 7.5 K/mcL (1.6-8.9); Platelet Count 250 K/mcL (140-400); Red Blood Count 2.94 M/mcL (4.19-5.50); Red Cell Distribution Width 14.6 % (11.5-14.5); Segmented Neutrophils % 81.6 %
[2016-10-27 04:14] LABS: BUN/Creatinine Ratio 19 (6-26); Blood Urea Nitrogen 14 mg/dL (8-26); Calcium 8.8 mg/dL (8.6-10.8); Carbon Dioxide 24 mEq/L (19-29); Chloride 96 mEq/L (98-109); Glucose 119 mg/dL (70-99); Osmolality,Calculated 270 (280-300); Potassium 4.3 mEq/L (3.5-4.5); Sodium 129 mEq/L (136-145); eGFR For African Americans > 60 (> 60); eGFR For Non-African Americans > 60 (> 60)
[2016-10-27] MEDS: Lisinopril 20 MG TABLET PO SCH (07:58)
[2016-10-27] MEDS ORDERED: Aspirin Enteric Coated 325 MG Tablet PO SCH (09:00)
[2016-10-27] MEDS ORDERED: predniSONE 20 MG TABLET PO SCH (09:00)
[2016-10-27] MEDS ORDERED: Spironolactone 25 MG TABLET PO SCH (09:00)
[2016-10-27] MEDS ORDERED: Diltiazem CD (24hr) 180 MG CAPSULE PO SCH (09:00)
[2016-10-27] MEDS ORDERED: (Fluticasone/Vilanterol [Breo Ellipta 100-25 Mcg Inh]) IH SCH (09:00)
[2016-10-27] MEDS ORDERED: (Tiotropium Bromide [Spiriva Respimat] 4 GM) IH SCH (09:00)
--- NOTE | 2016-10-27 11:29 | Discharge Summary ---
Date of Encounter: 10/27/16 Time of Encounter: 08:00 - Discharge Diagnosis (1) PAD (peripheral artery disease) Priority: Primary Status: Chronic Comments: Patient has known left lower extremity occlusive disease with severe femoral and tibial disease. He underwent successful bypass grafting and endarterectomy. He had excellent perfusion of the left lower extremity following surgery. (2) COPD (chronic obstructive pulmonary disease) Priority: Secondary Status: Chronic Comments: Patient has significant COPD. He is under medical treatment for this. He is on steroids in the perioperative period. Qualifiers: COPD type: unspecified COPD Qualified Code(s): J44.9 - Chronic obstructive pulmonary disease, unspecified (3) Tobacco abuse Priority: Secondary Status: Chronic Comments: Patient has chronic tobacco abuse. He has decreased his tobacco consumption to one half pack per day. He had smoked up to 3 packs per day. (4) ETOH abuse Priority: Secondary Status: Chronic Comments: Long-standing alcohol abuse. Patient is now down to 2 cans of beer per day according to family. (5) Hyponatremia Priority: Secondary Status: Chronic Comments: Patient has chronic hyponatremia which is thought secondary to her underlying medical conditions in particular his alcohol disease. The serum sodium was in the high 120's range during this hospitalization. He was asymptomatic from this process. (6) Anemia Priority: Secondary Status: Chronic Comments: Patient has chronic anemia. It was exacerbated by perioperative intravenous dilution and blood loss. He received 1 unit of blood on postoperative day #0. Qualifiers: Anemia type: unspecified type Qualified Code(s): D64.9 - Anemia, unspecified - Discharge Medications Prescriptions: Ferrous Gluconate 324 mg PO BID #60 tablet Home Medications: Aspirin [Ecotrin] 325 mg PO DAILY 07/29/16 [History] Atenolol [Tenormin] 50 mg PO BID 07/29/16 [History] Diltiazem HCl [Diltiazem 24Hr Cd] 180 mg PO DAILY 07/29/16 [History] Lisinopril [Zestril] 20 mg PO BID 07/29/16 [History] Omeprazole [PriLOSEC] 20 mg PO BID 07/29/16 [History] Spironolactone [Aldactone] 25 mg PO DAILY 07/29/16 [History] Albuterol Sulfate [Albuterol Inhaler] 2 puff IH Q4HR PRN 08/18/16 [History] Tiotropium [place] [Spiriva Respimat] 4 gm IH DAILY #0 08/18/16 [History] hydrOXYzine HCl [Hydroxyzine HCl] 25 mg PO HS 08/18/16 [History] Lovastatin [Mevacor] 20 mg PO HS #30 tablet 09/13/16 [Rx] Albuterol Sulfate [Albuterol Inhaler] 2 puff IH Q4HR PRN 10/26/16 [History] Fluticasone/Vilanterol [Breo Ellipta 100-25 Mcg INH] 1 puff IH DAILY 10/26/16 [ History] Sodium Chloride 2,000 mg MC BID 10/26/16 [History] predniSONE [PredniSONE] 40 mg PO DAILY 10/26/16 [History] Ferrous Gluconate 324 mg PO BID #60 tablet 10/27/16 [Rx] Allergies/Adverse Reactions: 3 Allergy/AdvReac Type Severity Reaction Status Date / Time acetaminophen [From Vicodin] AdvReac See Verified 10/26/16 07:40 Comments hydrocodone [From Vicodin] AdvReac See Verified 10/26/16 07:40 Comments Date of admission: 10/26/16 14:56 Primary care physician: Shankar Menezes CNP Consults: None Procedure(s) Performed: Left lower extremity femoral to above-knee popliteal artery bypass graft with reverse greater saphenous vein Left common femoral artery endarterectomy with bovine pericardial patch angioplasty Discharging clinician: Josue Morse Anticipated date of discharge: 10/27/16 - Patient Status Disposition: Home, Self-Care Condition: Good Functional capacity at discharge: uses cane/walker Overall status at discharge: patient is progressing back to baseline - Discharge Instructions Follow Up With: Shankar Menezes CNP [Primary Care Provider] - 10/31/16 2:00 pm Josue Morse MD [Partnered Physician] - 11/20/16 10:30 am (THIS APPOINTMENT IS IN [place]) Additional Instructions: Keep surgical site dry for total of 5 days following surgery. Patient may ambulate as tolerated. Elevate left lower extremity when at rest. Resume usual home medications. 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 - Diet and Activity Activity: increase activity as tolerated Diet: advance to your usual diet - Hospital Course Hospital course: Mr. Mars is a 61 year old male With known severe peripheral vascular occlusive disease. Undergone a right lower extremity reconstruction approximate 5 weeks ago. During this hospitalization underwent a left femoral-popliteal bypass graft with extensive left common femoral artery endarterectomy with patch angioplasty. Patient had excellent reperfusion of the left foot following surgery. He had an uneventful postoperative course. He was noted to have decrease of his chronic anemia to less than 8. Therefore he received 1 unit of blood in transfusion of postoperative day #0. He otherwise is doing well. He is thought fit for discharge on the afternoon of postoperative day #1. - Time Spent with Patient Total time spent providing and/or coordinating discharge services: Exam Vital Signs, Last 4 Hours Temp Pulse Resp BP Pulse Ox 10/27/16 11:07 98.1 F 75 16 142/63 96 10/27/16 07:52 16 98 10/27/16 07:50 81 General: Present: Conversant, No Apparent Distress HEENT: Present: Atraumatic Cardiac: Present: Reg Rate and Rhythm Lungs: Present: Decreased breath sounds Neuro: Present: Alert and responsive, No focal deficits noted Abdomen: Present: Soft Vascular: Present: Color/Temperature (Color and temperature of left foot is normal.), Surgical incisions (Surgical incisions are clean and dry.), Other ( Patient has Doppler signals 3 at left ankle.) - VTE Documentation of Mechanical Device: Intermittent pneumatic compression device
[2016-10-27 15:26] VITALS: BP 123/62
== END 2016-10-27 18:04 | disposition home or self-care (01) | DRG 253 ==
LOC: SAMDAY 06:18 → 2NNU 14:56
PROVIDERS: ADMIT Surgery Vascular Surgery; ATTEND Surgery Vascular Surgery

== ENCOUNTER 2020-07-04 13:38 | Inpatient (IN) ==
[2020-07-04] MEDS ORDERED: Ondansetron 4 MG/2 ML VIAL IVP PRN (16:57)
[2020-07-04] MEDS ORDERED: Mag Hydrox/Al Hydrox/Simeth 30 ML UDC PO PRN (16:57)
[2020-07-04] MEDS ORDERED: Naloxone 0.4 MG/ML INJ IVP PRN (16:57)
[2020-07-04] MEDS ORDERED: 0.9 % Sodium Chloride 1,000 ML IVC SCH (17:15)
[2020-07-04] MEDS ORDERED: Acetaminophen 325 MG TABLET PO PRN (17:30)
[2020-07-04] MEDS ORDERED: Ipratropium/Albuterol Neb 3 ML IH PRN (17:32)
[2020-07-04] MEDS ORDERED: Vancomycin 0 MG in 0.9 % Sodium Chloride 250 ML IVPB SCH (19:00)
[2020-07-04] MEDS: Melatonin 3 MG TABLET PO PRN (21:54)
[2020-07-04] MEDS: Ibuprofen 400 MG TABLET PO PRN (21:54)
[2020-07-05 06:47] LABS: Basophils # 0.1 K/mcL (0.0-0.2); Basophils % 0.3 %; Eosinophils # 0.1 K/mcL (0.0-0.6); Eosinophils % 0.4 %; Hematocrit 34.7 % (37.5-50.1); Hemoglobin 11.9 g/dL (12.9-16.9); Immature Granulocytes % 0.9 % (0-4); Lymphocytes # 0.8 K/mcL (0.6-4.6); Lymphocytes % 5.1 %; Mean Corpuscular HGB Conc 34.3 g/dL (31.6-35.5); Mean Corpuscular Hemoglobin 32.2 pg (28.0-33.3); Monocytes # 1.4 K/mcL (0.0-1.3); Monocytes % 8.9 %; Neutrophils # 13.2 K/mcL (1.6-8.9); Platelet Count 244 K/mcL (140-400); Red Blood Count 3.69 M/mcL (4.19-5.50); Red Cell Distribution Width 12.1 % (11.5-14.5); Segmented Neutrophils % 84.4 %; White Blood Count 15.6 K/mcL (4.3-11.1)
[2020-07-05 06:55] LABS: INR 1.1; Prothrombin Time 12.5 Seconds (9.4-12.1)
[2020-07-05 07:07] LABS: BUN/Creatinine Ratio 16 (6-26); Blood Urea Nitrogen 15 mg/dL (8-23); Calcium 8.6 mg/dL (8.6-10.3); Carbon Dioxide 23 mEq/L (23-29); Chloride 99 mEq/L (98-107); Glucose 121 mg/dL (70-105); Magnesium 1.6 mg/dL (1.6-2.6); Osmolality,Calculated 272 (280-300); Sodium 130 mEq/L (136-145); eGFR For African Americans > 60 (> 60); eGFR For Non-African Americans > 60 (> 60)
[2020-07-05 07:08] LABS: Chol/HDL Ratio 2.6 (0-4.9)
[2020-07-05 07:39] LABS: Estimated Average Glucose 111 mg/dl; Hemoglobin A1C 5.5 %
[2020-07-05] MEDS: DilTIAZem CD (24hr) 180 MG CAP.ER.24H PO SCH (08:25)
[2020-07-05] MEDS: Folic Acid 1 MG TABLET PO SCH (08:25)
[2020-07-05] MEDS: Thiamine (B-1) 100 MG TABLET PO SCH (08:25)
[2020-07-05] MEDS: Ibuprofen 400 MG TABLET PO PRN ×2 (08:25→20:48)
[2020-07-05] MEDS: Aspirin Enteric Coated 325 MG Tablet PO SCH (08:25)
[2020-07-05] MEDS: Tiotropium 10 INH DOSE IH SCH (09:52)
[2020-07-05 13:31] LABS: Bilirubin,Urine Negative (Negative); Blood,Urine Negative (Negative); Clarity,Urine Clear (Clear); Color,Urine Colorless (Yellow); Glucose,Urine (UA) Normal (Normal); Ketones,Urine Negative (Negative); Leukocyte Esterase,Urine Negative (Negative); Nitrite,Urine Negative (Negative); Protein,Urine Negative (Neg-Trace); Specific Gravity,Urine > 1.030 (1.010-1.025); Urobilinogen,Urine Normal (Normal)
[2020-07-05] MEDS ORDERED: lisinopriL 20 MG TABLET PO ONE (17:28)
[2020-07-05] MEDS: Piperacillin/Tazobactam 3.375 GM in 0.9 % Sodium Chloride Mini Bag 100 ML IVPB SCH (17:46)
[2020-07-05] MEDS: Melatonin 3 MG TABLET PO PRN (20:49)
[2020-07-06 01:26] LABS: Adenovirus Not Detected (Not Detect); Bordetella Pertussis Not Detected (Not Detect); Chlamydophila pneumoniae Not Detected (Not Detect); Coronavirus 229E Not Detected (Not Detect); Coronavirus HKU1 Not Detected (Not Detect); Coronavirus NL63 Not Detected (Not Detect); Coronavirus OC43 Not Detected (Not Detect); Human Metapneumovirus Not Detected (Not Detect); Human Rhinovirus/Enterovirus Not Detected (Not Detect); Influenza A Subtype 2009 H1 Not Detected (Not Detect); Influenza B Not Detected (Not Detect); Mycoplasma pneumoniae Not Detected (Not Detect); Parainfluenza Virus 1 Not Detected (Not Detect); Parainfluenza Virus 2 Not Detected (Not Detect); Parainfluenza Virus 3 Not Detected (Not Detect); Parainfluenza Virus 4 Not Detected (Not Detect); Respiratory Syncytial Virus Not Detected (Not Detect); SARS-CoV-2 Not Detected (Not Detect)
[2020-07-06] MEDS: Piperacillin/Tazobactam 3.375 GM in 0.9 % Sodium Chloride Mini Bag 100 ML IVPB SCH ×3 (02:10→18:13)
[2020-07-06 06:22] LABS: Basophils # 0.1 K/mcL (0.0-0.2); Basophils % 0.3 %; Eosinophils # 0.2 K/mcL (0.0-0.6); Eosinophils % 1.1 %; Hemoglobin 11.8 g/dL (12.9-16.9); Immature Granulocytes % 0.8 % (0-4); Lymphocytes # 1.2 K/mcL (0.6-4.6); Lymphocytes % 7.5 %; Mean Corpuscular HGB Conc 33.7 g/dL (31.6-35.5); Mean Corpuscular Hemoglobin 32.2 pg (28.0-33.3); Mean Corpuscular Volume 95.4 fL (83.0-100.0); Mean Platelet Volume 9.2 fL (9.4-12.4); Monocytes # 1.3 K/mcL (0.0-1.3); Monocytes % 8.5 %; Neutrophils # 12.6 K/mcL (1.6-8.9); Platelet Count 269 K/mcL (140-400); Red Blood Count 3.67 M/mcL (4.19-5.50); Segmented Neutrophils % 81.8 %; White Blood Count 15.4 K/mcL (4.3-11.1)
[2020-07-06 06:37] LABS: BUN/Creatinine Ratio 14 (6-26); Blood Urea Nitrogen 14 mg/dL (8-23); Carbon Dioxide 24 mEq/L (23-29); Chloride 99 mEq/L (98-107); Glucose 118 mg/dL (70-105); Osmolality,Calculated 272 (280-300); Potassium 3.7 mEq/L (3.5-5.1); Sodium 130 mEq/L (136-145); eGFR For African Americans > 60 (> 60); eGFR For Non-African Americans > 60 (> 60)
[2020-07-06] MEDS ORDERED: lisinopriL 20 MG TABLET PO SCH (09:00)
[2020-07-06] MEDS ORDERED: Spironolactone 25 MG TABLET PO SCH (09:00)
[2020-07-06] MEDS: Thiamine (B-1) 100 MG TABLET PO SCH (09:38)
[2020-07-06] MEDS: Folic Acid 1 MG TABLET PO SCH (09:38)
[2020-07-06] MEDS: Aspirin Enteric Coated 325 MG Tablet PO SCH (09:38)
[2020-07-06] MEDS: DilTIAZem CD (24hr) 180 MG CAP.ER.24H PO SCH (09:38)
[2020-07-06] MEDS: Tiotropium 10 INH DOSE IH SCH (09:48)
[2020-07-06] MEDS ORDERED: *HR* OxyCODONE Immed Rel 5 MG TABLET PO PRN (14:22)
[2020-07-06] MEDS ORDERED: *HR* HYDROmorphone PF 0.5 MG/0.5 ML SYRINGE IVP PRN (14:22)
[2020-07-06] MEDS ORDERED: Ondansetron 4 MG/2 ML VIAL ONE (14:32)
[2020-07-06] MEDS ORDERED: *HR* Propofol 200 MG/20 ML VIAL IVP ONE (14:32)
[2020-07-06] MEDS ORDERED: Lidocaine -MPF 2% 2 ML VIAL ONE (14:32)
[2020-07-06] MEDS ORDERED: *HR* Succinylcholine 200 MG/10 ML VIAL IVP ONE (14:32)
[2020-07-06] MEDS ORDERED: *HR* Rocuronium Bromide 50 MG/5 ML VIAL ONE (14:32)
[2020-07-06] MEDS ORDERED: *HR* FentaNYL (PF) 100 MCG/2 ML VIAL ONE (14:33)
[2020-07-06] MEDS ORDERED: *HR* HYDROMORPHONE 2 MG/ML VIAL ONE (16:22)
[2020-07-06] MEDS ORDERED: EPHEDrine 50 MG/ML VIAL ONE (16:36)
[2020-07-06] MEDS ORDERED: Sugammadex Sodium 200 MG/2 ML VIAL IV ONE (16:39)
[2020-07-06] MEDS ORDERED: Mag Hydrox/Al Hydrox/Simeth 30 ML UDC PO PRN (17:45)
[2020-07-06] MEDS ORDERED: Naloxone 0.4 MG/ML INJ IVP PRN ×2 (17:45)
[2020-07-06] MEDS ORDERED: Melatonin 3 MG TABLET PO PRN (17:45)
[2020-07-06] MEDS ORDERED: Ondansetron 4 MG/2 ML VIAL IVP PRN (17:45)
[2020-07-06] MEDS ORDERED: Ipratropium/Albuterol Neb 3 ML IH PRN (17:45)
[2020-07-06] MEDS ORDERED: Acetaminophen 325 MG TABLET PO PRN (17:45)
[2020-07-06] MEDS: Ibuprofen 400 MG TABLET PO PRN (18:12)
[2020-07-06] MEDS: Budesonide/Formoterol 160/4.5 1 PUFF INH IH SCH (20:04)
[2020-07-06] MEDS: lisinopriL 20 MG TABLET PO SCH (21:35)
[2020-07-06] MEDS ORDERED: Budesonide/Formoterol 160/4.5 1 PUFF INH IH SCH (22:00)
[2020-07-07] MEDS: Piperacillin/Tazobactam 3.375 GM in 0.9 % Sodium Chloride Mini Bag 100 ML IVPB SCH ×3 (03:21→17:19)
[2020-07-07] MEDS: Tiotropium 10 INH DOSE IH SCH (08:11)
[2020-07-07] MEDS: Budesonide/Formoterol 160/4.5 1 PUFF INH IH SCH ×2 (08:11→20:33)
[2020-07-07] MEDS: Thiamine (B-1) 100 MG TABLET PO SCH (08:35)
[2020-07-07] MEDS: lisinopriL 20 MG TABLET PO SCH ×2 (08:35→20:41)
[2020-07-07] MEDS: Aspirin Enteric Coated 325 MG Tablet PO SCH (08:35)
[2020-07-07] MEDS: Folic Acid 1 MG TABLET PO SCH (08:36)
[2020-07-07] MEDS: Spironolactone 25 MG TABLET PO SCH (08:36)
[2020-07-07] MEDS: DilTIAZem CD (24hr) 180 MG CAP.ER.24H PO SCH (08:36)
[2020-07-07 08:42] LABS: Basophils % 0.2 %; Hematocrit 33.2 % (37.5-50.1); Hemoglobin 10.9 g/dL (12.9-16.9); Immature Granulocytes % 1.5 % (0-4); Lymphocytes # 0.7 K/mcL (0.6-4.6); Lymphocytes % 5.3 %; Mean Corpuscular HGB Conc 32.8 g/dL (31.6-35.5); Mean Corpuscular Hemoglobin 31.8 pg (28.0-33.3); Mean Corpuscular Volume 96.8 fL (83.0-100.0); Mean Platelet Volume 9.4 fL (9.4-12.4); Monocytes # 0.5 K/mcL (0.0-1.3); Monocytes % 3.9 %; Neutrophils # 11.5 K/mcL (1.6-8.9); Platelet Count 286 K/mcL (140-400); Red Blood Count 3.43 M/mcL (4.19-5.50); Red Cell Distribution Width 11.9 % (11.5-14.5); Segmented Neutrophils % 89.1 %; White Blood Count 12.9 K/mcL (4.3-11.1)
[2020-07-07 09:03] LABS: BUN/Creatinine Ratio 18 (6-26); Blood Urea Nitrogen 18 mg/dL (8-23); Carbon Dioxide 23 mEq/L (23-29); Chloride 104 mEq/L (98-107); Glucose 194 mg/dL (70-105); Osmolality,Calculated 285 (280-300); Potassium 4.1 mEq/L (3.5-5.1); Sodium 134 mEq/L (136-145); eGFR For African Americans > 60 (> 60); eGFR For Non-African Americans > 60 (> 60)
[2020-07-08] MEDS: Piperacillin/Tazobactam 3.375 GM in 0.9 % Sodium Chloride Mini Bag 100 ML IVPB SCH ×3 (03:34→19:39)
[2020-07-08 06:52] LABS: Basophils % 0.2 %; Eosinophils % 0.1 %; Hemoglobin 10.3 g/dL (12.9-16.9); Immature Granulocytes % 0.7 % (0-4); Lymphocytes # 1.1 K/mcL (0.6-4.6); Lymphocytes % 8.7 %; Mean Corpuscular HGB Conc 33.2 g/dL (31.6-35.5); Mean Corpuscular Hemoglobin 31.6 pg (28.0-33.3); Mean Corpuscular Volume 95.1 fL (83.0-100.0); Mean Platelet Volume 9.1 fL (9.4-12.4); Monocytes # 0.8 K/mcL (0.0-1.3); Monocytes % 6.4 %; Platelet Count 300 K/mcL (140-400); Red Blood Count 3.26 M/mcL (4.19-5.50); Red Cell Distribution Width 11.9 % (11.5-14.5); Segmented Neutrophils % 83.9 %; White Blood Count 13.1 K/mcL (4.3-11.1)
[2020-07-08 07:11] LABS: BUN/Creatinine Ratio 18 (6-26); Blood Urea Nitrogen 17 mg/dL (8-23); Calcium 8.6 mg/dL (8.6-10.3); Carbon Dioxide 21 mEq/L (23-29); Chloride 103 mEq/L (98-107); Glucose 130 mg/dL (70-105); Osmolality,Calculated 279 (280-300); Sodium 133 mEq/L (136-145); eGFR For African Americans > 60 (> 60); eGFR For Non-African Americans > 60 (> 60)
[2020-07-08] MEDS: Spironolactone 25 MG TABLET PO SCH (10:01)
[2020-07-08] MEDS: Thiamine (B-1) 100 MG TABLET PO SCH (10:02)
[2020-07-08] MEDS: Aspirin Enteric Coated 325 MG Tablet PO SCH (10:02)
[2020-07-08] MEDS: DilTIAZem CD (24hr) 180 MG CAP.ER.24H PO SCH (10:02)
[2020-07-08] MEDS: lisinopriL 20 MG TABLET PO SCH ×2 (10:02→20:26)
[2020-07-08] MEDS: Folic Acid 1 MG TABLET PO SCH (10:02)
[2020-07-08] MEDS: Budesonide/Formoterol 160/4.5 1 PUFF INH IH SCH ×2 (11:04→20:09)
[2020-07-08] MEDS: Tiotropium 10 INH DOSE IH SCH (11:04)
[2020-07-08] MEDS: Ibuprofen 400 MG TABLET PO PRN (16:06)
[2020-07-08 18:43] LABS: Platelet Estimate Normal (Normal)
[2020-07-08] MEDS ORDERED: *HR* LORazepam 2 MG/ML VIAL IVP PRN ×3 (19:58)
[2020-07-09] MEDS: Piperacillin/Tazobactam 3.375 GM in 0.9 % Sodium Chloride Mini Bag 100 ML IVPB SCH ×2 (02:34→12:41)
[2020-07-09 06:36] LABS: Basophils % 0.4 %; Eosinophils # 0.2 K/mcL (0.0-0.6); Eosinophils % 1.6 %; Hematocrit 32.7 % (37.5-50.1); Hemoglobin 10.7 g/dL (12.9-16.9); Immature Granulocytes % 1.3 % (0-4); Lymphocytes # 1.6 K/mcL (0.6-4.6); Lymphocytes % 17.8 %; Mean Corpuscular HGB Conc 32.7 g/dL (31.6-35.5); Mean Corpuscular Hemoglobin 31.8 pg (28.0-33.3); Mean Platelet Volume 9.5 fL (9.4-12.4); Monocytes % 11.1 %; Neutrophils # 6.2 K/mcL (1.6-8.9); Platelet Count 298 K/mcL (140-400); Red Blood Count 3.37 M/mcL (4.19-5.50); Red Cell Distribution Width 11.9 % (11.5-14.5); Segmented Neutrophils % 67.8 %; White Blood Count 9.1 K/mcL (4.3-11.1)
[2020-07-09 07:04] LABS: % Iron Saturation 28 % (20-55); Alanine Aminotransferase 18 Units/L (7-52); Albumin 3.2 g/dL (3.5-5.7); Albumin/Globulin Ratio 1.5 (1.1-2.2); Alkaline Phosphatase 57 Units/L (34-104); Aspartate Amino Transferase 16 Units/L (13-39); BUN/Creatinine Ratio 18 (6-26); Bilirubin,Indirect 0.3 mg/dL (0.0-1.0); Bilirubin,Total 0.3 mg/dL (0.3-1.0); Blood Urea Nitrogen 16 mg/dL (8-23); Calcium 8.6 mg/dL (8.6-10.3); Carbon Dioxide 24 mEq/L (23-29); Chloride 102 mEq/L (98-107); Globulin 2.2 g/dL (2.4-3.5); Glucose 96 mg/dL (70-105); Iron 71 mcg/dL (65-175); Magnesium 1.5 mg/dL (1.6-2.6); Osmolality,Calculated 279 (280-300); Potassium 3.9 mEq/L (3.5-5.1); Sodium 134 mEq/L (136-145); Total Protein 5.4 g/dL (6.4-8.9); Transferrin 180 mg/dL (203-362); eGFR For African Americans > 60 (> 60); eGFR For Non-African Americans > 60 (> 60)
[2020-07-09 07:12] LABS: Ferritin 217 ng/mL (20-250)
[2020-07-09 07:19] LABS: Folate 14.7 ng/mL (3.0-16.0)
[2020-07-09] MEDS: Folic Acid 1 MG TABLET PO SCH (07:37)
[2020-07-09] MEDS: Aspirin Enteric Coated 325 MG Tablet PO SCH (07:37)
[2020-07-09] MEDS: Thiamine (B-1) 100 MG TABLET PO SCH (07:37)
[2020-07-09] MEDS: DilTIAZem CD (24hr) 180 MG CAP.ER.24H PO SCH (07:37)
[2020-07-09] MEDS: Spironolactone 25 MG TABLET PO SCH (07:37)
[2020-07-09] MEDS: lisinopriL 20 MG TABLET PO SCH (07:37)
[2020-07-09] MEDS ORDERED: Cyanocobalamin (B-12) 1,000 MCG/ML VIAL SQ ONE (07:44)
[2020-07-09 07:53] VITALS: BP 158/71
[2020-07-09] MEDS: Budesonide/Formoterol 160/4.5 1 PUFF INH IH SCH (07:56)
[2020-07-09] MEDS: Tiotropium 10 INH DOSE IH SCH (07:56)
[2020-07-09] MEDS ORDERED: Nicotine 21 MG PATCH.TD24 TD SCH (09:00)
== END 2020-07-09 15:51 | disposition home health service (06) | DRG 854 ==
LOC: 3ANU → SUATTDRO 15:49
PROVIDERS: ADMIT Internal Medicine; ATTEND Pharmacist

== ENCOUNTER 2020-07-27 19:09 | Inpatient (IN) ==
[2020-07-27] MEDS ORDERED: Naloxone 0.4 MG/ML INJ IVP PRN (21:43)
[2020-07-27] MEDS ORDERED: Ondansetron 4 MG/2 ML VIAL IVP PRN (21:43)
[2020-07-27] MEDS ORDERED: 0.9 % Sodium Chloride 1,000 ML IVC SCH (21:45)
[2020-07-27] MEDS ORDERED: *HR* LORazepam 2 MG/ML VIAL IVP PRN (21:57)
[2020-07-27 22:27] LABS: BUN/Creatinine Ratio 6 (6-26); Blood Urea Nitrogen 6 mg/dL (8-23); Carbon Dioxide 18 mEq/L (23-29); Chloride 99 mEq/L (98-107); Glucose 107 mg/dL (70-105); Osmolality,Calculated 266 (280-300); Potassium 3.7 mEq/L (3.5-5.1); Sodium 129 mEq/L (136-145); eGFR For African Americans > 60 (> 60); eGFR For Non-African Americans > 60 (> 60)
[2020-07-28] MEDS: Vancomycin Oral Soln 125 MG/2.5 ML UDC PO SCH ×4 (04:09→22:18)
[2020-07-28] MEDS: *HR* Heparin 5,000 UNIT/ML VIAL SQ SCH ×3 (05:36→22:18)
[2020-07-28 06:16] LABS: Basophils # 0.1 K/mcL (0.0-0.2); Basophils % 0.5 %; Eosinophils # 0.4 K/mcL (0.0-0.6); Eosinophils % 4.6 %; Hematocrit 27.5 % (37.5-50.1); Hemoglobin 9.7 g/dL (12.9-16.9); Immature Granulocytes % 1.6 % (0-4); Lymphocytes # 1.4 K/mcL (0.6-4.6); Lymphocytes % 14.8 %; Mean Corpuscular HGB Conc 35.3 g/dL (31.6-35.5); Mean Corpuscular Hemoglobin 32.1 pg (28.0-33.3); Mean Corpuscular Volume 91.1 fL (83.0-100.0); Mean Platelet Volume 8.8 fL (9.4-12.4); Monocytes % 14.3 %; Platelet Count 361 K/mcL (140-400); Red Blood Count 3.02 M/mcL (4.19-5.50); Segmented Neutrophils % 64.2 %; White Blood Count 9.4 K/mcL (4.3-11.1)
[2020-07-28 06:20] LABS: Monocytes # 1.3 K/mcL (0.0-1.3)
[2020-07-28 06:40] LABS: Alanine Aminotransferase 9 Units/L (7-52); Albumin/Globulin Ratio 1.5 (1.1-2.2); Alkaline Phosphatase 70 Units/L (34-104); Aspartate Amino Transferase 9 Units/L (13-39); BUN/Creatinine Ratio 6 (6-26); Bilirubin,Total 0.4 mg/dL (0.3-1.0); Blood Urea Nitrogen 6 mg/dL (8-23); Calcium 8.1 mg/dL (8.6-10.3); Carbon Dioxide 18 mEq/L (23-29); Chloride 100 mEq/L (98-107); Glucose 129 mg/dL (70-105); Osmolality,Calculated 265 (280-300); Potassium 3.1 mEq/L (3.5-5.1); Sodium 128 mEq/L (136-145); eGFR For African Americans > 60 (> 60); eGFR For Non-African Americans > 60 (> 60)
[2020-07-28] MEDS: Thiamine (B-1) 100 MG TABLET PO SCH (08:52)
[2020-07-28] MEDS: Vitamin B Complex/Vit C/Vit E 1 EACH TABLET PO SCH (08:52)
[2020-07-28] MEDS: Folic Acid 1 MG TABLET PO SCH (08:52)
[2020-07-29] MEDS: Vancomycin Oral Soln 125 MG/2.5 ML UDC PO SCH ×4 (05:28→22:47)
[2020-07-29] MEDS: *HR* Heparin 5,000 UNIT/ML VIAL SQ SCH ×3 (05:28→22:47)
[2020-07-29] MEDS ORDERED: 0.9 % Sodium Chloride 500 ML IVC ONE (05:50)
[2020-07-29] MEDS: DilTIAZem CD (24hr) 180 MG CAP.ER.24H PO SCH (06:18)
[2020-07-29 08:14] LABS: Magnesium 1.3 mg/dL (1.6-2.6)
[2020-07-29] MEDS: Vitamin B Complex/Vit C/Vit E 1 EACH TABLET PO SCH (08:32)
[2020-07-29] MEDS: Thiamine (B-1) 100 MG TABLET PO SCH (08:32)
[2020-07-29] MEDS: Folic Acid 1 MG TABLET PO SCH (08:32)
[2020-07-29] MEDS: Aspirin Enteric Coated 325 MG Tablet PO SCH (08:58)
[2020-07-29] MEDS ORDERED: Spironolactone 25 MG TABLET PO SCH (09:00)
[2020-07-29] MEDS ORDERED: lisinopriL 20 MG TABLET PO SCH (09:00)
[2020-07-29] MEDS ORDERED: Perflutren Lipid Microsphere 1.3 ML in 0.9 % Sodium Chloride 8.7 ML IVP PRN (09:13)
[2020-07-29] MEDS ORDERED: Levalbuterol Neb 1.25 MG/3 ML IH PRN (09:33)
[2020-07-29 09:40] LABS: Basophils # 0.1 K/mcL (0.0-0.2); Basophils % 0.6 %; Eosinophils # 0.2 K/mcL (0.0-0.6); Eosinophils % 2.6 %; Hematocrit 31.7 % (37.5-50.1); Hemoglobin 10.7 g/dL (12.9-16.9); Immature Granulocytes % 1.5 % (0-4); Lymphocytes # 1.1 K/mcL (0.6-4.6); Lymphocytes % 12.2 %; Mean Corpuscular HGB Conc 33.8 g/dL (31.6-35.5); Mean Corpuscular Hemoglobin 30.9 pg (28.0-33.3); Mean Corpuscular Volume 91.6 fL (83.0-100.0); Mean Platelet Volume 8.5 fL (9.4-12.4); Monocytes # 1.1 K/mcL (0.0-1.3); Neutrophils # 6.7 K/mcL (1.6-8.9); Platelet Count 378 K/mcL (140-400); Red Blood Count 3.46 M/mcL (4.19-5.50); Red Cell Distribution Width 11.9 % (11.5-14.5); Segmented Neutrophils % 71.1 %; White Blood Count 9.4 K/mcL (4.3-11.1)
[2020-07-29 10:08] LABS: Alanine Aminotransferase 10 Units/L (7-52); Albumin/Globulin Ratio 1.4 (1.1-2.2); Alkaline Phosphatase 71 Units/L (34-104); Aspartate Amino Transferase 11 Units/L (13-39); BUN/Creatinine Ratio 5 (6-26); Bilirubin,Total 0.3 mg/dL (0.3-1.0); Blood Urea Nitrogen 4 mg/dL (8-23); Calcium 8.2 mg/dL (8.6-10.3); Carbon Dioxide 22 mEq/L (23-29); Chloride 102 mEq/L (98-107); Globulin 2.1 g/dL (2.4-3.5); Glucose 163 mg/dL (70-105); Osmolality,Calculated 270 (280-300); Sodium 130 mEq/L (136-145); Total Protein 5.1 g/dL (6.4-8.9); eGFR For African Americans > 60 (> 60); eGFR For Non-African Americans > 60 (> 60)
[2020-07-29 11:46] LABS: Thyroid Stimulating Hormone 2.337 mcIU/mL (0.340-5.600)
[2020-07-29] MEDS: 0.9 % Sodium Chloride 1,000 ML IVC SCH (13:54)
[2020-07-30] MEDS: Vancomycin Oral Soln 125 MG/2.5 ML UDC PO SCH ×2 (05:42→08:22)
[2020-07-30] MEDS: 0.9 % Sodium Chloride 1,000 ML IVC SCH (05:43)
[2020-07-30] MEDS: *HR* Heparin 5,000 UNIT/ML VIAL SQ SCH (05:55)
[2020-07-30 08:08] VITALS: BP 135/75
[2020-07-30] MEDS: Vitamin B Complex/Vit C/Vit E 1 EACH TABLET PO SCH (08:20)
[2020-07-30] MEDS: Folic Acid 1 MG TABLET PO SCH (08:20)
[2020-07-30] MEDS: DilTIAZem CD (24hr) 180 MG CAP.ER.24H PO SCH (08:20)
[2020-07-30] MEDS: Thiamine (B-1) 100 MG TABLET PO SCH (08:20)
[2020-07-30] MEDS: Aspirin Enteric Coated 325 MG Tablet PO SCH (08:20)
[2020-07-30] MEDS ORDERED: lisinopriL 20 MG TABLET PO SCH (09:00)
[2020-07-30 12:56] LABS: BUN/Creatinine Ratio 5 (6-26); Blood Urea Nitrogen 4 mg/dL (8-23); Calcium 8.3 mg/dL (8.6-10.3); Carbon Dioxide 21 mEq/L (23-29); Chloride 102 mEq/L (98-107); Glucose 129 mg/dL (70-105); Osmolality,Calculated 273 (280-300); Potassium 3.9 mEq/L (3.5-5.1); Sodium 132 mEq/L (136-145); eGFR For African Americans > 60 (> 60); eGFR For Non-African Americans > 60 (> 60)
== END 2020-07-30 13:53 | disposition home or self-care (01) | DRG 372 ==
LOC: 3BNU → SUATTDRO 20:58
PROVIDERS: ADMIT Internal Medicine; ATTEND Registered Nurse

== ENCOUNTER 2020-11-20 16:45 | Inpatient (IN) ==
[2020-11-20] MEDS ORDERED: 0.9 % Sodium Chloride 1,000 ML IVC ONE ×2 (17:35→19:27)
[2020-11-20] MEDS ORDERED: Ondansetron 4 MG/2 ML VIAL IVP ONE (17:35)
[2020-11-20] MEDS ORDERED: Morphine Sulfate 2 MG/ML SYRINGE IVP ONE (17:35)
[2020-11-20] MEDS ORDERED: Isovue-370 500 ML BOTTLE IVP ONE (17:37)
[2020-11-20 18:00] LABS: Basophils % 0.3 %; Eosinophils # 0.1 K/mcL (0.0-0.6); Eosinophils % 0.4 %; Hemoglobin 12.3 g/dL (12.9-16.9); Immature Granulocytes % 0.6 % (0-4); Lymphocytes # 0.9 K/mcL (0.6-4.6); Mean Corpuscular HGB Conc 34.2 g/dL (31.6-35.5); Mean Corpuscular Hemoglobin 31.7 pg (28.0-33.3); Mean Corpuscular Volume 92.8 fL (83.0-100.0); Mean Platelet Volume 8.7 fL (9.4-12.4); Monocytes # 1.3 K/mcL (0.0-1.3); Monocytes % 8.7 %; Neutrophils # 12.1 K/mcL (1.6-8.9); Platelet Count 379 K/mcL (140-400); Red Blood Count 3.88 M/mcL (4.19-5.50); Red Cell Distribution Width 13.2 % (11.5-14.5); White Blood Count 14.4 K/mcL (4.3-11.1)
[2020-11-20 18:21] LABS: Alanine Aminotransferase 12 Units/L (7-52); Albumin/Globulin Ratio 1.3 (1.1-2.2); Alkaline Phosphatase 87 Units/L (34-104); Amylase 19 Units/L (29-103); Aspartate Amino Transferase 13 Units/L (13-39); BUN/Creatinine Ratio 15 (6-26); Bilirubin,Direct 0.1 mg/dL (0.0-0.2); Bilirubin,Indirect 0.2 mg/dL (0.0-1.0); Bilirubin,Total 0.3 mg/dL (0.3-1.0); Blood Urea Nitrogen 17 mg/dL (8-23); Calcium 8.5 mg/dL (8.6-10.3); Carbon Dioxide 22 mEq/L (23-29); Chloride 99 mEq/L (98-107); Globulin 2.4 g/dL (2.4-3.5); Glucose 130 mg/dL (70-105); Lipase 18 Units/L (11-82); Osmolality,Calculated 271 (280-300); Potassium 3.7 mEq/L (3.5-5.1); Sodium 129 mEq/L (136-145); Total Protein 5.4 g/dL (6.4-8.9); Troponin I < 0.03 ng/mL (< 0.04); eGFR For African Americans > 60 (> 60); eGFR For Non-African Americans > 60 (> 60)
[2020-11-20 18:22] LABS: Bilirubin,Urine Negative (Negative); Blood,Urine Negative (Negative); Clarity,Urine Clear (Clear); Color,Urine Light-Yellow (Yellow); Glucose,Urine (UA) Normal (Normal); Ketones,Urine Trace mg/dL (Negative); Leukocyte Esterase,Urine Negative (Negative); Nitrite,Urine Negative (Negative); PH,Urine 5.5 pH Units (5.0-8.0); Protein,Urine Negative (Neg-Trace); Specific Gravity,Urine 1.021 (1.010-1.025); Urobilinogen,Urine Normal (Normal)
[2020-11-20] MEDS ORDERED: *HR* Heparin 5,000 UNIT/ML VIAL IVP ONE (19:49)
[2020-11-20] MEDS ORDERED: *HR* Heparin 5,000 UNIT/ML VIAL IVP PRN ×2 (19:49)
[2020-11-20] MEDS ORDERED: Piperacillin/Tazobactam 4.5 GM in 0.9 % Sodium Chloride Mini Bag 100 ML IVPB ONE (19:51)
[2020-11-20] MEDS ORDERED: Heparin 25,000UNIT/250ML 1/2NS 25,000 UNIT/250 ML IV.SOLN IVC SCH (20:00)
[2020-11-20] MEDS ORDERED: Piperacillin/Tazobactam 3.375 GM in Water for inj. (sterile) 20 ML IVP ONE (20:04)
[2020-11-20] MEDS ORDERED: Naloxone 0.4 MG/ML INJ IVP PRN (21:18)
[2020-11-20] MEDS ORDERED: Acetaminophen 325 MG TABLET PO PRN (21:24)
[2020-11-20] MEDS ORDERED: *HR* HYDROcodone/Acet 5/325 mg TABLET PO PRN (21:24)
[2020-11-20] MEDS ORDERED: Melatonin 3 MG TABLET PO PRN (21:24)
[2020-11-20] MEDS ORDERED: *HR* OxyCODONE Immed Rel 5 MG TABLET PO PRN (21:24)
[2020-11-20] MEDS ORDERED: Ondansetron 4 MG/2 ML VIAL IVP PRN (21:24)
[2020-11-20] MEDS ORDERED: *HR* Promethazine 25 MG/ML VIAL IM PRN (21:24)
[2020-11-20] MEDS: *HR* Metoprolol 5 MG/5 ML VIAL IVP SCH (23:52)
[2020-11-21] MEDS: Ringers Solution, Lactated 1,000 ML IVC SCH ×2 (00:13→07:44)
[2020-11-21 04:56] LABS: INR 1.1; Prothrombin Time 12.2 Seconds (9.4-12.1)
[2020-11-21 05:00] LABS: Activated Partial Thrombo Time 63.5 Seconds (26.0-36.0)
[2020-11-21 05:04] LABS: Basophils # 0.1 K/mcL (0.0-0.2); Basophils % 0.4 %; Eosinophils # 0.1 K/mcL (0.0-0.6); Eosinophils % 1.1 %; Hematocrit 30.5 % (37.5-50.1); Immature Granulocytes % 0.6 % (0-4); Lymphocytes # 1.1 K/mcL (0.6-4.6); Lymphocytes % 8.9 %; Mean Corpuscular HGB Conc 33.8 g/dL (31.6-35.5); Mean Corpuscular Hemoglobin 31.8 pg (28.0-33.3); Mean Corpuscular Volume 94.1 fL (83.0-100.0); Mean Platelet Volume 9.1 fL (9.4-12.4); Monocytes # 1.3 K/mcL (0.0-1.3); Monocytes % 10.6 %; Neutrophils # 9.8 K/mcL (1.6-8.9); Platelet Count 339 K/mcL (140-400); Red Blood Count 3.24 M/mcL (4.19-5.50); Red Cell Distribution Width 13.2 % (11.5-14.5); Segmented Neutrophils % 78.4 %; White Blood Count 12.5 K/mcL (4.3-11.1)
[2020-11-21 05:06] LABS: Hemoglobin 10.3 g/dL (12.9-16.9)
[2020-11-21 05:26] LABS: Alanine Aminotransferase 9 Units/L (7-52); Albumin 2.6 g/dL (3.5-5.7); Albumin/Globulin Ratio 1.5 (1.1-2.2); Alkaline Phosphatase 70 Units/L (34-104); Aspartate Amino Transferase 11 Units/L (13-39); BUN/Creatinine Ratio 16 (6-26); Bilirubin,Total 0.3 mg/dL (0.3-1.0); Blood Urea Nitrogen 14 mg/dL (8-23); Calcium 7.8 mg/dL (8.6-10.3); Carbon Dioxide 20 mEq/L (23-29); Chloride 102 mEq/L (98-107); Cholesterol 94 mg/dL (< 200); Globulin 1.7 g/dL (2.4-3.5); Glucose 84 mg/dL (70-105); HDL Cholesterol 47 mg/dL (40-59); LDL Cholesterol,Calculated 38 mg/dL (< 100); Magnesium 1.2 mg/dL (1.6-2.6); Osmolality,Calculated 270 (280-300); Sodium 130 mEq/L (136-145); Total Protein 4.3 g/dL (6.4-8.9); Triglycerides 44 mg/dL (< 150); eGFR For African Americans > 60 (> 60); eGFR For Non-African Americans > 60 (> 60)
[2020-11-21] MEDS: *HR* Metoprolol 5 MG/5 ML VIAL IVP SCH ×2 (05:47→11:30)
[2020-11-21] MEDS: Piperacillin/Tazobactam 3.375 GM in 0.9 % Sodium Chloride Mini Bag 100 ML IVPB SCH ×3 (07:44→23:38)
[2020-11-21] MEDS: DilTIAZem CD (24hr) 180 MG CAP.ER.24H PO SCH (07:48)
[2020-11-21] MEDS: Aspirin Enteric Coated 325 MG Tablet PO SCH (07:48)
[2020-11-21] MEDS: Budesonide/Formoterol 160/4.5 1 PUFF INH IH SCH (08:02)
[2020-11-21] MEDS: Tiotropium 10 INH DOSE IH SCH (08:02)
[2020-11-21] MEDS: Levalbuterol Neb 0.63 MG/3 ML IH SCH ×2 (16:07→21:58)
[2020-11-21] MEDS ORDERED: Piperacillin/Tazobactam 3.375 GM VIAL ONE (16:11)
[2020-11-21] MEDS: predniSONE 20 MG TABLET PO SCH (16:15)
[2020-11-21] MEDS: Fluticasone Propionate Nasal 50 MCG/SPRAY BOTTLE NS SCH (16:16)
[2020-11-21] MEDS ORDERED: *HR* Heparin 5,000 UNIT/ML VIAL IVP PRN ×2 (16:22)
[2020-11-21] MEDS ORDERED: Heparin 25,000UNIT/250ML 1/2NS 25,000 UNIT/250 ML IV.SOLN IVC SCH (16:30)
[2020-11-21] MEDS: *HR* Acetylcysteine 20% 600 MG/3 ML ORAL SYRINGE PO SCH (20:32)
[2020-11-22 00:25] LABS: Eosinophils % 0.1 %; Hematocrit 29.1 % (37.5-50.1); Immature Granulocytes % 0.8 % (0-4); Lymphocytes # 0.6 K/mcL (0.6-4.6); Lymphocytes % 7.5 %; Mean Corpuscular HGB Conc 34.4 g/dL (31.6-35.5); Mean Corpuscular Hemoglobin 31.6 pg (28.0-33.3); Mean Corpuscular Volume 92.1 fL (83.0-100.0); Mean Platelet Volume 8.6 fL (9.4-12.4); Monocytes # 0.1 K/mcL (0.0-1.3); Monocytes % 1.7 %; Neutrophils # 7.4 K/mcL (1.6-8.9); Platelet Count 337 K/mcL (140-400); Red Blood Count 3.16 M/mcL (4.19-5.50); Red Cell Distribution Width 13.1 % (11.5-14.5); Segmented Neutrophils % 89.9 %; White Blood Count 8.3 K/mcL (4.3-11.1)
[2020-11-22 00:47] LABS: BUN/Creatinine Ratio 12 (6-26); Blood Urea Nitrogen 9 mg/dL (8-23); Carbon Dioxide 22 mEq/L (23-29); Chloride 97 mEq/L (98-107); Glucose 159 mg/dL (70-105); Magnesium 1.5 mg/dL (1.6-2.6); Osmolality,Calculated 262 (280-300); Potassium 4.2 mEq/L (3.5-5.1); Sodium 125 mEq/L (136-145); eGFR For African Americans > 60 (> 60); eGFR For Non-African Americans > 60 (> 60)
[2020-11-22] MEDS: Levalbuterol Neb 0.63 MG/3 ML IH SCH ×4 (04:20→22:18)
[2020-11-22] MEDS: Tiotropium 10 INH DOSE IH SCH (07:59)
[2020-11-22] MEDS: Budesonide/Formoterol 160/4.5 1 PUFF INH IH SCH (07:59)
[2020-11-22] MEDS: *HR* Acetylcysteine 20% 600 MG/3 ML ORAL SYRINGE PO SCH ×2 (08:19→20:50)
[2020-11-22] MEDS: Aspirin Enteric Coated 325 MG Tablet PO SCH (08:19)
[2020-11-22] MEDS: Piperacillin/Tazobactam 3.375 GM in 0.9 % Sodium Chloride Mini Bag 100 ML IVPB SCH ×2 (08:19→15:19)
[2020-11-22] MEDS: Spironolactone 25 MG TABLET PO SCH (08:20)
[2020-11-22] MEDS: DilTIAZem CD (24hr) 180 MG CAP.ER.24H PO SCH (08:20)
[2020-11-22] MEDS: predniSONE 20 MG TABLET PO SCH (08:20)
[2020-11-22] MEDS: Fluticasone Propionate Nasal 50 MCG/SPRAY BOTTLE NS SCH (08:21)
[2020-11-22] MEDS ORDERED: Pantoprazole 40 MG VIAL IVP SCH (09:00)
[2020-11-22] MEDS: Lactobacillus 1 EACH CAP.SPRINK PO SCH ×2 (11:28→20:51)
[2020-11-22] MEDS: lisinopriL 20 MG TABLET PO SCH ×2 (13:37→20:51)
[2020-11-23] MEDS: Piperacillin/Tazobactam 3.375 GM in 0.9 % Sodium Chloride Mini Bag 100 ML IVPB SCH ×2 (00:35→08:09)
[2020-11-23] MEDS: Levalbuterol Neb 0.63 MG/3 ML IH SCH ×2 (04:32→09:13)
[2020-11-23 06:46] LABS: Basophils % 0.2 %; Eosinophils % 0.1 %; Hemoglobin 10.2 g/dL (12.9-16.9); Immature Granulocytes % 1.6 % (0-4); Lymphocytes # 1.7 K/mcL (0.6-4.6); Lymphocytes % 16.1 %; Mean Corpuscular Hemoglobin 30.9 pg (28.0-33.3); Mean Corpuscular Volume 90.9 fL (83.0-100.0); Mean Platelet Volume 8.8 fL (9.4-12.4); Monocytes # 0.9 K/mcL (0.0-1.3); Neutrophils # 7.5 K/mcL (1.6-8.9); Platelet Count 380 K/mcL (140-400); White Blood Count 10.2 K/mcL (4.3-11.1)
[2020-11-23 07:04] LABS: BUN/Creatinine Ratio 8 (6-26); Blood Urea Nitrogen 7 mg/dL (8-23); Calcium 8.5 mg/dL (8.6-10.3); Carbon Dioxide 27 mEq/L (23-29); Chloride 98 mEq/L (98-107); Glucose 94 mg/dL (70-105); Magnesium 1.5 mg/dL (1.6-2.6); Osmolality,Calculated 270 (280-300); Potassium 3.9 mEq/L (3.5-5.1); Sodium 131 mEq/L (136-145); eGFR For African Americans > 60 (> 60); eGFR For Non-African Americans > 60 (> 60)
[2020-11-23] MEDS: Fluticasone Propionate Nasal 50 MCG/SPRAY BOTTLE NS SCH (08:10)
[2020-11-23] MEDS: DilTIAZem CD (24hr) 180 MG CAP.ER.24H PO SCH (08:10)
[2020-11-23] MEDS: Aspirin Enteric Coated 325 MG Tablet PO SCH (08:10)
[2020-11-23] MEDS: *HR* Acetylcysteine 20% 600 MG/3 ML ORAL SYRINGE PO SCH (08:10)
[2020-11-23] MEDS: Lactobacillus 1 EACH CAP.SPRINK PO SCH (08:10)
[2020-11-23] MEDS: Spironolactone 25 MG TABLET PO SCH (08:10)
[2020-11-23] MEDS: lisinopriL 20 MG TABLET PO SCH (08:10)
[2020-11-23] MEDS: Budesonide/Formoterol 160/4.5 1 PUFF INH IH SCH (09:13)
[2020-11-23] MEDS: Tiotropium 10 INH DOSE IH SCH (09:13)
[2020-11-23] MEDS ORDERED: Magnesium Oxide 400 MG TABLET PO SCH (09:15)
[2020-11-23 10:35] VITALS: BP 99/54; PULSE 67; TEMP 98.5; O2SAT 97
== END 2020-11-23 11:15 | disposition home or self-care (01) | DRG 392 ==
LOC: EMEROOARM 16:45 → 3ANU 16:45 → SUATTDRO 21:50
PROVIDERS: ADMIT Family Medicine; ATTEND Internal Medicine